=== PATIENT | female | born 1960 | race Caucasian/White ===

== ENCOUNTER 2016-09-16 12:10 | Inpatient (IN) ==
[2016-09-16] MEDS ORDERED: 0.9 % Sodium Chloride 1,000 ML IVC ONE ×2 (12:54→16:57)
[2016-09-16] MEDS ORDERED: Ipratropium/Albuterol Neb 3 ML IH ONE (12:55)
[2016-09-16 13:39] LABS: Basophils % 0.2 %; Eosinophils # 0.1 K/mcL (0.0-0.6); Eosinophils % 0.7 %; Hematocrit 38.4 % (35.3-44.9); Hemoglobin 12.8 g/dL (11.5-15.4); Immature Granulocytes % 0.6 % (0-4); Lymphocytes # 1.1 K/mcL (0.6-4.6); Lymphocytes % 8.5 %; Mean Corpuscular HGB Conc 33.3 g/dL (31.6-35.5); Mean Corpuscular Volume 89.9 fL (83.0-100.0); Mean Platelet Volume 10.4 fL (9.4-12.4); Monocytes # 0.9 K/mcL (0.0-1.3); Monocytes % 6.9 %; Neutrophils # 10.3 K/mcL (1.6-8.9); Platelet Count 277 K/mcL (140-400); Red Blood Count 4.27 M/mcL (3.82-4.97); Red Cell Distribution Width 12.6 % (11.5-14.5); Segmented Neutrophils % 83.1 %
[2016-09-16 13:52] LABS: Calcium 9.5 mg/dL (8.6-10.8); Potassium 3.5 mEq/L (3.5-4.5)
[2016-09-16] MEDS ORDERED: *HR* Morphine 2 MG/ML SYRINGE IVP ONE (14:07)
--- NOTE | 2016-09-16 16:55 | Emergency Department Note ---
Disposition Clinical Impression: Hip hematoma, right, Dehydration Disposition: Admitted As Inpatient Condition: Fair Referrals: NO,PCP [Primary Care Provider] - Forms: ED Satisfaction Letter Time of Disposition: 16:57 Extremity Problem HPI - General Chief complaint: ED Extremity Problem,Nontraumatic Stated complaint: left leg pain Time Seen by Provider: 09/16/16 12:48 Source: EMS Limitations: no limitations Nursing Notes Reviewed: Yes Vital Signs Reviewed: Yes - History of Present Illness HPI Narrative: 55-year-old female presents emergency room for right hip pain and left leg pain. Patient states she fell a few days ago injuring her right hip. She does not take any blood thinners. She states she does have a history of pulmonary embolus. She states that was years ago. She was concerned about her left lower extremity as it was causing her to have some pain as well and she was concerned about a DVT. She denies any abdominal pain. She does admit however to nausea and vomiting as well as diaphoresis and fevers and chills. Symptom onset was yesterday. Worse today. Pt Subjective Complaint: extremity pain, extremity swelling, joint paint Onset (ago): day(s) (2 d) Injury Location: right Pain Scale: 8 Quality: aching Radiation: none Improves with: nothing Worsens with: range of motion, weight bearing, palpation Associated symptoms: Reports: fever, myalgias, arthralgias, swelling, redness. Denies: abdominal pain - Related Data Home Medications Medication Instructions Recorded Confirmed Duloxetine [Cymbalta] 30 mg PO DAILY 02/21/16 03/01/16 FLUoxetine HCl [PROzac] 20 mg PO DAILY 02/21/16 03/01/16 Previous Rx's Medication Instructions Recorded Omeprazole [PriLOSEC] 20 mg PO BIDAC #30 cap 02/21/16 Fluticasone Propionate Nasal 1 spray NS 1-2XD #1 bottle 03/01/16 [Flonase] Levofloxacin [Levaquin] 500 mg PO DAILY #7 tablet 03/01/16 Allergies Allergy/AdvReac Type Severity Reaction Status Date / Time codeine Allergy Hives Verified 03/01/16 15:43 NSAIDS (Non-Steroidal AdvReac Gastrointestinal Verified 03/01/16 15:43 Anti-Inflamma Upset All systems ED: reviewed and negative except as stated. Constitutional: Reports: as per HPI, fever, chills Eyes: Reports: as per HPI Cardiovascular: Reports: as per HPI Respiratory: Reports: as per HPI Gastrointestinal: Reports: nausea, vomiting. Denies: diarrhea Genitourinary: Reports: as per HPI Musculoskeletal: Reports: arthralgia, myalgia Integumentary: Reports: as per HPI Neurological: Reports: as per HPI Psychiatric: Reports: as per HPI Endocrine: Reports: as per HPI Hematological/Lymphatic: Reports: as per HPI Past Medical History - Past Medical History Medical history: Reports: non-contributory, asthma, COPD, pulmonary embolus Psychiatric history: Reports: anxiety, bipolar, depression, panic disorder, PTSD , previous psychiatric hospitalization DATA MANAGEMENT SPECIALIST history: Reports: no DATA MANAGEMENT SPECIALIST history - Social History Smoking Status: Current every day smoker Smokeless Tobacco Status: No Alcohol use: Reports: none Drug use: Reports: none Physical Exam - General Limitations: no limitations General appearance: alert - Head Head exam: atraumatic, normocephalic - Eye Eye exam: Present: normal appearance - Neck Neck exam: Present: normal inspection - Chest Chest inspection: Present: normal inspection - Respiratory Respiratory exam: Present: normal lung sounds bilaterally - Cardiovascular Cardiovascular exam: Present: regular rate, normal rhythm - Abdominal Exam Abdominal exam: Present: soft, Non-Tender, normal bowel sounds - Extremities Exam Extremities exam: Present: other (Patient has some soft tissue swelling located to the right lateral hip concerning for hematoma. Very warm to touch with some erythema. Concerns for cellulitis.) - Expanded Lower Extremity Exam Lower leg exam: Present: other (Left lower extremity appears unremarkable.) Neurovascular/Tendon exam: Present: normal capillary refill - Neurological Exam Neurological exam: Present: alert, oriented X3 - Psychiatric Psychiatric exam: Present: normal affect, normal mood - Skin Skin exam: Present: warm, intact, diaphoresis Course Course Narrative: Plain films of bilateral hips were negative. Ultrasound of the left lower extremity was negative for DVT. CT scan of the right hip without contrast was done to evaluate for infection versus hematoma. The radiologist felt like it was more hematoma related. However, patient as having redness to this region as well as temperature changes concerning for possible infection. I have ordered some IV Unasyn. Patient will need to be admitted for observation. She was very diaphoretic upon exam. Vital Signs Temperature 98.8 F 09/16/16 12:12 Pulse Rate 92 09/16/16 12:12 Respiratory Rate 20 09/16/16 12:12 Blood Pressure 105/67 09/16/16 12:12 O2 Sat by Pulse Oximetry 94 09/16/16 12:12 Temperature 98.8 F 09/16/16 12:12 Pulse Rate 77 09/16/16 15:12 Respiratory Rate 18 09/16/16 15:12 Blood Pressure 110/64 09/16/16 15:12 O2 Sat by Pulse Oximetry 95 09/16/16 15:12 Oxygen Delivery Oxygen Delivery Room Air Extremity Problem, Nontraumati - MDM Narrative Medical decision making narrative: Patient is dehydrated with an elevation of her BUN/creatinine from her nausea and vomiting. Her lactate was normal. Concerns obviously for a right hip hematoma infection. Unasyn has been ordered as well as some IV fluids. - Medical Records Medical records reviewed: Yes I reviewed the patient's medical records. - Lab Data Lab results reviewed: Yes I reviewed the patient's lab results. Result diagrams: 09/16/16 13:31 09/16/16 13:31 Lab Results 09/16/16 09/16/16 09/16/16 Range/Units 13:31 13:31 13:31 WBC 12.4 H (4.3-11.1) K/mcL RBC 4.27 (3.82-4.97) M/mcL Hgb 12.8 (11.5-15.4) g/dL Hct 38.4 (35.3-44.9) % MCV 89.9 (83.0-100.0) fL MCH 30.0 (28.0-33.3) pg MCHC 33.3 (31.6-35.5) g/dL RDW 12.6 (11.5-14.5) % Plt Count 277 (140-400) K/mcL MPV 10.4 (9.4-12.4) fL Immature Gran % 0.6 (0-4) % Seg Neutrophils % 83.1 % Lymphocytes % 8.5 % Monocytes % 6.9 % Eosinophils % 0.7 % Basophils % 0.2 % Neutrophils # 10.3 H (1.6-8.9) K/mcL Lymphocytes # 1.1 (0.6-4.6) K/mcL Monocytes # 0.9 (0.0-1.3) K/mcL Eosinophils # 0.1 (0.0-0.6) K/mcL Basophils # 0.0 (0.0-0.2) K/mcL Sodium 137 (136-145) mEq/L Potassium 3.5 (3.5-4.5) mEq/L Chloride 99 (98-109) mEq/L Carbon Dioxide 23 (19-29) mEq/L BUN 23 H (7-20) mg/dL Creatinine 2.73 H (0.57-1.11) mg/dL Est GFR ( Amer) 22 L (> 60) Est GFR (Non-Af Amer) 18 L (> 60) BUN/Creatinine Ratio 8 (6-26) Glucose 109 H (70-99) mg/dL Calculated Osmolality 288 (280-300) Lactic Acid 1.3 (0.5-2.2) mmol/L Calcium 9.5 (8.6-10.8) mg/dL - Radiology Data Radiology results reviewed: Yes I reviewed the patient's radiology results.
[2016-09-16] MEDS ORDERED: Ondansetron ODT 4 MG TAB.RAPDIS SL PRN (17:41)
[2016-09-16] MEDS ORDERED: Albuterol 2.5 MG/3 ML NEBULIZER IH PRN (17:41)
[2016-09-16] MEDS ORDERED: Naloxone 0.4 MG/ML INJ IVP PRN (17:41)
[2016-09-16] MEDS ORDERED: Acetaminophen 325 MG TABLET PO PRN (17:41)
--- NOTE | 2016-09-16 17:53 | Internal Med History&Physical ---
<Breanne Kenney M - Last Filed: 09/16/16 20:01> Date of Encounter: 09/16/16 Time of Encounter: 17:50 Assessment and Plan (1) Hip hematoma, right Current visit: Yes Status: Acute Patient unsure if she fell. She reports swelling, tenderness and redness for the last three days, along with nausea, vomiting, chills and sweats. CT of hip showed soft tissue hematoma just superficial to the gluteal musculature laterally measuring 6.4 x 5.5 x 7.7 cm. Given patient's symptoms other symptoms, concern for septic hematoma. Will treat with IV antibiotics tylenol, norco, and morphine PRN for pain Narcan PRN for respiratory depression Qualifiers: Encounter type: initial encounter Qualified Code(s): S70.01XA - Contusion of right hip, initial encounter (2) STEVIE (acute kidney injury) Current visit: Yes Status: Acute Patient with BUN of 23 and Cr of 2.73. Patient denies any known history of kidney disease. No baseline labs available for comparison. She reports nausea , vomiting and poor appetite over the last several days, and STEVIE may be due to dehydration. UA with micro Hydrate overnight retroperitoneal ultrasound avoid NSAIDs, renally dose medications Recheck chemistry in the morning. (3) Sepsis Current visit: Yes Status: Acute Patient reports chills, sweats, nausea, vomiting. Right hip with erythematous, warm swelling, possibly cellulitis. WBC count mildly elevated to 12.4, HR mildly elevated on presentation, meeting criteria for sepsis. Blood cultures drawn and sent Lactate normal at 1.3 fluids given with 2L of bolus in ED, followed by 100mL/hr antibiotics initiated with Unasyn, will add Vancomycin Ultrasound of hip ordered to further assess for abscess/fluid collection. Qualifiers: Sepsis type: sepsis due to unspecified organism Qualified Code(s): A41.9 - Sepsis, unspecified organism (4) COPD (chronic obstructive pulmonary disease) Current visit: Yes Status: Acute Patient reports COPD, and reports increased shortness of breath and productive cough for the last 2-3 months. She has run out of her medications. CXR shows no acute process. Lungs have scattered wheezes on auscultation duoneb treatments QID albuterol nebulizer Q2 PRN budesonide/formotorol BID titrate oxygen to maintain O2 sat > 92% Qualifiers: COPD type: unspecified COPD Qualified Code(s): J44.9 - Chronic obstructive pulmonary disease, unspecified (5) Smoker Current visit: Yes Status: Acute Patient smokes 1PPD. Discussed smoking cessation, she has tried to quit in the past and would like to quit, but not ready at this time. Nicotine patch ordered. (6) Bipolar disorder Current visit: Yes Status: Acute Patient reports bipolar disorder, depression, anxiety. She also reports she has recently moved from [place] and has not established with local PCP or Psychiatrist and is running out of her medications. SWK consult Continue home doses of gabapentin, fluoxetine, and seroquel Qualifiers: Active/Remission status: remission status unspecified Qualified Code(s): F31.9 - Bipolar disorder, unspecified (7) DVT prophylaxis Current visit: Yes Status: Acute Ambulate with assistance anti-embolic stockings Heparin 5000u SQ TID Internal Medicine - H&P: HPI Chief complaint: leg pain Admitted From: Emergency Dept Plans for Post Hospital Care: Home History of present illness: Ms. Lim is a 55 year old female with COPD, history of PE, bipolar disorder, anxiety, who presented to the ER today with complaints of pain in her right hip and left leg. Patient reports her left leg has been aching on and off for 2 weeks. Her right hip is warm, red, and tender and she reports that has been going on for 3 days. She states she may have fallen, but cannot remember if she fell or not. In the last three days, she has also experienced sweats, chills, nausea and vomiting, poor appetite, an episode of lightheadedness yesterday. She also reports shortness of breath and cough over the last few months she attributes to her COPD. She denies chest pain, palpitations, numbness , tingling, headache. She reports she moved from [place] recently and has not established with a PCP and is running out of all her medications as well. Evaluation in the ED revealed mildly elevated WBC count of 12.4. Renal failure with BUN 23 and Creatinine of 2.73. Patient denies any history of kidney disease, and we have no baseline labs for comparison. CXR showed no evidence of acute cardiopulmonary disease. Xray of bilateral hips showed normal bilateral hip alignment with no acute fracture or significant arthropathy. CT of right hip showed a soft tissue hematoma just superficial to the gluteal musclature laterally measuring 6.4 x 5.5 x 7.7 cm, higher in density, with no associated gas or fluid to allow for drainage, no findings suspicious for abscess. On exam, patient is alert and oriented, in no acute distress. Lungs have scattered wheezes bilaterally. Right hip has erythematous swelling laterally that is tender to palpation. Past Med Surg Social Fam HX - Past Medical History Medical history: non-contributory, asthma, COPD, pulmonary embolus Psychiatric history: anxiety, bipolar, depression, panic disorder, PTSD, previous psychiatric hospitalization - Past Surgical History Surgical History: cholecystectomy, hysterectomy, orthopedic, other - Social History Smoking Status: Current every day smoker (36 pack year history) Smokeless Tobacco Status: No Alcohol use: none Drug use: none - Family History Mother Living Status: Age at : 46 Cause of : suicide Hx Family Psychosocial Disorders: Yes Father Living Status: Age at : 46 Hx Family Psychosocial Disorders: Yes Internal Medicine - H&P: Meds FLUoxetine HCl [PROzac] 20 mg PO DAILY 02/21/16 [History] Gabapentin [Neurontin] 800 mg PO BID 09/16/16 [History] Quetiapine Fumarate [Seroquel] 600 mg PO HS 09/16/16 [History] Allergies codeine Allergy (Verified 03/01/16 15:43) Hives NSAIDS (Non-Steroidal Anti-Inflamma Adverse Reaction (Verified 03/01/16 15:43) Gastrointestinal Upset All Systems PM: A 10-system review of systems was performed and is negative for pertinent findings except as documented above in the HPI. - Constitutional Constitutional: anorexia, chills, falls, night sweats, no fever(s) - EENT Eyes: no change in vision, no discharge, no pain, no photophobia Ears: no ear discharge, no ear pain, no tinnitus Nose, mouth and throat: no dysphagia, no nasal discharge, no neck pain, no sore throat - Cardiovascular Cardiovascular ROS IM: lightheadedness, no chest pain, no diaphoresis, no dyspnea, no palpitations, no syncope - Respiratory Respiratory: cough, dyspnea, wheezing, excessive phlegm production - Gastrointestinal Gastrointestinal: nausea, vomiting, no abdominal pain, no diarrhea, no hematemesis, no hematochezia, no melena - Genitourinary Genitourinary: no change in urinary stream, no dysuria, no flank pain, no hematuria - Musculoskeletal Musculoskeletal ROS IM: joint swelling (right hip), no numbness, no tingling - Integumentary Integumentary IM: no rash, no unusual bruising - Neurological Neurological ROS: memory loss (patient reports she has trouble with short term memory), no confusion, no convulsions, no focal weakness, no numbness, no tingling, no tremor(s) - Hematologic/Lymphatic Hematologic/Lymphatic: no easy bruising - Constitutional Vitals: Temp Pulse Resp BP Pulse Ox 98.8 F 77 18 110/64 95 09/16/16 12:12 09/16/16 15:12 09/16/16 15:12 09/16/16 15:12 09/16/16 15:12 General appearance: Present: A&O X 3, pleasant, no acute distress - Head Head exam: Present: atraumatic, normocephalic - Eye Eye exam: Present: PERRL, conjuntiva pink, sclera anicteric Pupils: Present: PERRL - Neck Neck exam general surgery: Present: supple, trachea midline. Absent: lymphadenopathy - Respiratory Respiratory exam: Present: wheezes (bilaterally). Absent: accessory muscle use , rales, rhonchi - Cardiovascular Cardiovascular exam: Present: RRR, +S1, +S2. Absent: diastolic murmur, gallop, rubs, systolic murmur - GI/Abdominal GI/Abdominal exam: Present: normal bowel sounds, soft, no peritoneal signs. Absent: distended, tenderness - Extremities Exam Extremities exam: Present: joint swelling (right hip erythmatous swelling laterally with tenderness), warm, radial pulses palpable and symetrical. Absent : calf tenderness, cyanotic, pedal edema - Neurological Exam Neurological exam: Present: CN II-XII intact, oriented X3, no focal deficits. Absent: facial droop, speech deficit - Skin Skin exam: Present: dry, intact Internal Med - H&P Results - Labs CBC & Chem 7: 09/16/16 13:31 09/16/16 13:31 Labs: All Lab Results (24 Hours) 09/16/16 09/16/16 09/16/16 Range/Units 13:31 13:31 13:31 WBC 12.4 H (4.3-11.1) K/mcL RBC 4.27 (3.82-4.97) M/mcL Hgb 12.8 (11.5-15.4) g/dL Hct 38.4 (35.3-44.9) % MCV 89.9 (83.0-100.0) fL MCH 30.0 (28.0-33.3) pg MCHC 33.3 (31.6-35.5) g/dL RDW 12.6 (11.5-14.5) % Plt Count 277 (140-400) K/mcL MPV 10.4 (9.4-12.4) fL Immature Gran % 0.6 (0-4) % Seg Neutrophils % 83.1 % Lymphocytes % 8.5 % Monocytes % 6.9 % Eosinophils % 0.7 % Basophils % 0.2 % Neutrophils # 10.3 H (1.6-8.9) K/mcL Lymphocytes # 1.1 (0.6-4.6) K/mcL Monocytes # 0.9 (0.0-1.3) K/mcL Eosinophils # 0.1 (0.0-0.6) K/mcL Basophils # 0.0 (0.0-0.2) K/mcL Sodium 137 (136-145) mEq/L Potassium 3.5 (3.5-4.5) mEq/L Chloride 99 (98-109) mEq/L Carbon Dioxide 23 (19-29) mEq/L BUN 23 H (7-20) mg/dL Creatinine 2.73 H (0.57-1.11) mg/dL Est GFR ( Amer) 22 L (> 60) Est GFR (Non-Af Amer) 18 L (> 60) BUN/Creatinine Ratio 8 (6-26) Glucose 109 H (70-99) mg/dL Calculated Osmolality 288 (280-300) Lactic Acid 1.3 (0.5-2.2) mmol/L Calcium 9.5 (8.6-10.8) mg/dL - Diagnostic Studies Chest x-ray Additional comments: Chest X-Ray 09/16/16 12:54 IMPRESSION: No radiographic evidence for acute cardiopulmonary disease process. D/ / Cm Crain / Cm Crain Interpreting Provider: Cm Crain Other Images Additional comments: Hip/Pelvis X-Ray 09/16/16 12:54 IMPRESSION: Normal bilateral hip alignment with no acute fracture or significant arthropathy. D/ / 09/16/2016 13:33:35 Prasad Pierce MD / Eleanor Delgado Interpreting Provider: Prasad Pierce MD Hip CT 09/16/16 15:16 IMPRESSION: There is a soft tissue hematoma seen on the right just superficial to the gluteal musculature laterally measuring 6.4 x 5.5 x 7.7 cm best seen on axial image 62. This appears higher in density, with no associated gas or fluid to allow for drainage. No findings suspicious for abscess at this time. No other acute process is identified. D/ / Kevin Aden MD / Kevin Aden MD Interpreting Provider: Kevin Aden MD <Erika Sinclair R - Last Filed: 09/17/16 05:27> Date of Encounter: 09/16/16 Internal Medicine - H&P: HPI History of present illness: Ms. Lim is a 55 year old female All Systems PM: A 10-system review of systems was performed and is negative for pertinent findings except as documented above in the HPI. - Constitutional Vitals: Temp Pulse Resp BP Pulse Ox 98.7 F 91 16 106/69 96 09/17/16 03:15 09/17/16 03:15 09/17/16 03:15 09/17/16 03:15 09/17/16 03:15 Internal Med - H&P Results - Labs CBC & Chem 7: 09/17/16 04:01 09/17/16 04:01 Labs: Short CBC 09/17/16 Range/Units 04:01 WBC 7.8 (4.3-11.1) K/mcL Hgb 10.3 L D (11.5-15.4) g/dL Hct 30.1 L (35.3-44.9) % Plt Count 206 (140-400) K/mcL Neutrophils # 5.7 (1.6-8.9) K/mcL BMP 09/17/16 04:01 Sodium 136 Potassium 3.1 L Chloride 102 Carbon Dioxide 21 BUN 27 H Creatinine 2.26 H Glucose 130 H Calcium 8.3 L Urine 09/16/16 Range/Units 20:00 Urine Color Yellow (Yellow) Urine Clarity Cloudy A (Clear) Urine pH 6.0 (5.0-8.0) pH Units Ur Specific Crapo 1.016 (1.010-1.025) Urine Protein 100 H (Neg-Trace) mg/dL Urine Glucose (UA) Normal (Normal) mg/dL - Attending Attestation I performed history and physical examination of the patient and discussed management with TEXTBOOK ASSOCIATE/ANP. I reviewed the TEXTBOOK ASSOCIATE/ANPs note and agree with the documented findings and plan of care. 57 Y/F with COPD, bipolar disorder presents with pain in the right hip. H/o falls and apparently she does not remember the falls sometimes. She presents with worsening pain at the right hip area for 3 days. She does not remember fall or injury to the right hip area, preceeding the pain. She reports chills and sweats prior to this presentation. O/E: Not in acute distress at the time of my evaluation. There is an area of erythema, local warmth and tenderness on the right lateral gluteal area. Skin: no other areas of bruising noted on the body. CT scan of the pelvis showed - soft tissue hematoma seen on the right just superficial to the gluteal musculature laterally measuring 6.4 x 5.5 x 7.7 cm. This appears higher in density, with no associated gas or fluid to allow for drainage. No findings suspicious for abscess at this time. Labs showed WBC of 12.4; creatinine 2.73. A/P: Hematoma/infected hematoma of the right gluteal area: Will request for US scan, for any areas for aspiration and culture. Emperically treat with unasyn and zosyn. STEVIE: US of the kidneys. IV fluids; monitor renal function. Recurrent falls: PT evaluation
[2016-09-16] MEDS ORDERED: Ampicillin/Sulbactam 3,000 MG in 0.9 % Sodium Chloride Mini Bag 100 ML IVPB ONE (18:00)
[2016-09-16] MEDS: 0.9 % Sodium Chloride 1,000 ML IVC SCH (18:56)
[2016-09-16] MEDS: Nicotine 21 MG PATCH.TD24 TD SCH (19:01)
[2016-09-16] MEDS: *HR* Morphine 2 MG/ML SYRINGE IVP PRN (20:07)
[2016-09-16 20:14] LABS: Bilirubin,Urine Negative (Negative); Blood,Urine Trace (Negative); Clarity,Urine Cloudy (Clear); Color,Urine Yellow (Yellow); Glucose,Urine (UA) Normal (Normal); Ketones,Urine Negative (Negative); Leukocyte Esterase,Urine Small (Negative); Nitrite,Urine Negative (Negative); Protein,Urine 100 mg/dL (Neg-Trace); Specific Gravity,Urine 1.016 (1.010-1.025); Urobilinogen,Urine Normal (Normal)
[2016-09-16 20:16] LABS: Bacteria,Urine Few per hpf (None-Few); Hyaline Casts,Urine None Seen per lpf (None-Few); Squamous Epithelial Cell,Urine Many per lpf (None-Few); WBC,Urine 30-50 per hpf (0-3)
[2016-09-16 20:19] LABS: Amphetamine Screen,Urine Negative ng/mL (Cutoff=1000); Barbiturate Screen,Urine Negative ng/mL (Cutoff=200); Benzodiazepines Screen,Urine Negative ng/mL (Cutoff=200); Cannabinoid Screen,Urine Negative ng/mL (Cutoff = 50); Cocaine Screen,Urine Negative ng/mL (Cutoff= 300); Opiate Screen,Urine Positive ng/mL (Cutoff=300); Phencyclidine Screen,Urine Negative ng/mL (Cutoff=25)
[2016-09-16 21:39] LABS: Albumin 3.2 g/dL (3.5-5.0); Albumin/Globulin Ratio 0.6 (1.1-2.2); Bilirubin,Direct 0.6 mg/dL (0.0-0.5); Bilirubin,Indirect 0.3 mg/dL (0.0-1.2); Bilirubin,Total 0.9 mg/dL (0.2-1.2); Total Protein 8.2 g/dL (6.0-8.3)
[2016-09-16] MEDS: Vancomycin 1,000 MG in D5% in Water 250 ML IVPB SCH (21:53)
[2016-09-16] MEDS ORDERED: *HR* Heparin 5,000 UNIT/ML VIAL SQ SCH (22:00)
[2016-09-16] MEDS: Ipratropium/Albuterol Neb 3 ML IH SCH (23:08)
[2016-09-16] MEDS: Budesonide/Formoterol 160/4.5 MDI IH SCH (23:08)
[2016-09-17] MEDS: *HR* Morphine 2 MG/ML SYRINGE IVP PRN ×6 (00:13→21:56)
[2016-09-17] MEDS: *HR* HYDROcodone/Acet 5/325 mg TABLET PO PRN ×5 (02:20→23:16)
[2016-09-17] MEDS: Fluticasone Propionate Nasal 50 MCG/SPRAY BOTTLE NS SCH ×2 (02:21→12:36)
[2016-09-17] MEDS: Ipratropium/Albuterol Neb 3 ML IH SCH ×5 (03:47→23:22)
[2016-09-17 04:51] LABS: Basophils % 0.3 %; Eosinophils # 0.2 K/mcL (0.0-0.6); Eosinophils % 2.3 %; Hematocrit 30.1 % (35.3-44.9); Immature Granulocytes % 0.4 % (0-4); Lymphocytes # 1.2 K/mcL (0.6-4.6); Mean Corpuscular HGB Conc 34.2 g/dL (31.6-35.5); Mean Corpuscular Hemoglobin 30.3 pg (28.0-33.3); Mean Corpuscular Volume 88.5 fL (83.0-100.0); Mean Platelet Volume 11.2 fL (9.4-12.4); Monocytes # 0.7 K/mcL (0.0-1.3); Monocytes % 8.9 %; Neutrophils # 5.7 K/mcL (1.6-8.9); Platelet Count 206 K/mcL (140-400); Red Cell Distribution Width 12.5 % (11.5-14.5); Segmented Neutrophils % 73.1 %
[2016-09-17 05:04] LABS: Calcium 8.3 mg/dL (8.6-10.8); Hemoglobin 10.3 g/dL (11.5-15.4); Potassium 3.1 mEq/L (3.5-4.5)
[2016-09-17] MEDS: Ampicillin/Sulbactam 1,500 MG in 0.9 % Sodium Chloride Mini Bag 100 ML IVPB SCH ×2 (06:03→20:25)
[2016-09-17] MEDS: Nicotine 21 MG PATCH.TD24 TD SCH (09:41)
[2016-09-17] MEDS: FLUoxetine 20 MG CAPSULE PO SCH (09:41)
[2016-09-17] MEDS: Gabapentin 400 MG CAPSULE PO SCH (09:42)
[2016-09-17] MEDS: Budesonide/Formoterol 160/4.5 MDI IH SCH ×2 (11:25→23:22)
--- NOTE | 2016-09-17 13:55 | Internal Med Progress Note ---
Date of Encounter: 09/17/16 Time of Encounter: 09:30 - Assessment and plan (1) Hip hematoma, right Current Visit: Yes Status: Acute Assessment and plan: Unclear causation at this time. Patient with rather large, erythematous, exquisitely tender area to her right lateral hip. Plain films unremarkable. Hip CT revealing a soft tissue hematoma with no indication of an abscess or any fluid that could be drained. Patient denies any recent injuries to the area. She states that she stopped taking her Suboxone 5 days ago because she was taking any type of pain medication she could get hold of secondary to the severe pain. She states she has not used hair once in January 2016. I do not see any injection or track ruiz on examination. Patient's pain is uncontrolled and her pain medication will be increased at this time. She likely has a relatively high tolerance for pain medication. Distal right leg neurovascularly intact. We will continue to treat her pain and observe. We will continue Unasyn and vancomycin. Vascular studies negative for DVT. ITS Impressions Hip/Pelvis X-Ray 09/16/16 12:54 IMPRESSION: Normal bilateral hip alignment with no acute fracture or significant arthropathy. D/ / 09/16/2016 13:33:35 Prasad Pierce MD / Eleanor Delgado Interpreting Provider: Prasad Pierce MD Hip CT 09/16/16 15:16 IMPRESSION: There is a soft tissue hematoma seen on the right just superficial to the gluteal musculature laterally measuring 6.4 x 5.5 x 7.7 cm best seen on axial image 62. This appears higher in density, with no associated gas or fluid to allow for drainage. No findings suspicious for abscess at this time. No other acute process is identified. D/ / Kevin Adne MD / Kevin Aden MD Interpreting Provider: Kevin Aden MD 09/16/16 14:37 - Vascular Preliminary by Joss Yañez Acct Num: [id number] : 1960 Patient Age: 55 Venous ultrasound appears to show both deep and superficial systems to be patent. Negative for DVT. Qualifiers: Encounter type: initial encounter Qualified Code(s): S70.01XA - Contusion of right hip, initial encounter (2) Sepsis Current Visit: Yes Status: Resolved Assessment and plan: Leukocytosis has resolved. Heart rate and blood pressure are stable. No lactic acidosis Qualifiers: Sepsis type: sepsis due to unspecified organism Qualified Code(s): A41.9 - Sepsis, unspecified organism (3) Heroin use disorder, mild, in early remission Current Visit: Yes Status: Chronic Assessment and plan: patient stating she has not used heroine since January of 2016. Has been on Suboxone- [facility] report checks out. States she has not taken her Suboxone for the past 5 days because she has been taking any pain medication she could get a hold of, in her words, to help alleviate her severe pain. (4) Dehydration Current Visit: Yes Status: Acute Assessment and plan: Will attempt to obtain her old records. Profound acute renal failure provided she does not have a history of chronic kidney disease. She does not have chronic kidney disease that she is aware of, attempting to obtain her records (5) COPD (chronic obstructive pulmonary disease) Current Visit: Yes Status: Chronic Assessment and plan: No acute exacerbation. Patient denies shortness of breath above her norm. Qualifiers: COPD type: unspecified COPD Qualified Code(s): J44.9 - Chronic obstructive pulmonary disease, unspecified (6) Smoker Current Visit: Yes Status: Chronic Assessment and plan: Declines counseling at this time, nicotine patch (7) STEVIE (acute kidney injury) Current Visit: Yes Status: Acute Assessment and plan: Considerable acute renal failure. I do not have prior lab values yet to determine chronicity. We will continue IV fluids and we will continue to trend. Attempting to obtain her old records. She states she does not think that she has any chronic kidney disease. If no improvement with IV fluids, will consider nephrology consult after records obtained. (8) DVT prophylaxis Current Visit: Yes Status: Acute Assessment and plan: SCD's ordered (9) Bipolar disorder Current Visit: Yes Status: Chronic Assessment and plan: mood and affect stable. It is unclear at this time whether or not the patient is taking her home medications, we will continue to investigate once her pain is controlled and her records have been received. Qualifiers: Active/Remission status: remission status unspecified Qualified Code(s): F31.9 - Bipolar disorder, unspecified (10) Hypokalemia Current Visit: Yes Status: Acute Assessment and plan: will replete and trend. (11) Transaminitis Current Visit: Yes Status: Acute Assessment and plan: Do not have prior lab values, will obtain hepatitis panel (12) Abnormal urinalysis Current Visit: Yes Status: Acute Assessment and plan: On antibiotics for suspected septic hematoma, culture pending - Subjective Interval history: Patient seen and examined. On examination, patient resting supine in bed. Patient endorsing severe pain to her right hip. She states she is unable to eat secondary to severe pain - Constitutional Vitals: Temp Pulse Resp BP Pulse Ox 98.2 F 81 16 106/72 94 09/17/16 11:39 09/17/16 11:39 09/17/16 11:39 09/17/16 08:08 09/17/16 11:39 General appearance: Present: mild distress (2/2 pain), A&O X 3, pleasant, answers questions appropriately - Head Head exam: Present: atraumatic, normocephalic - Eye Eye exam: Present: PERRL, conjuntiva pink, sclera anicteric Pupils: Present: PERRL - Neck Neck exam general surgery: Present: supple, trachea midline. Absent: lymphadenopathy - Respiratory Respiratory exam: Present: decreased breath sounds. Absent: accessory muscle use, rales, respiratory distress, rhonchi, wheezes - Cardiovascular Cardiovascular exam: Present: RRR, +S1, +S2. Absent: diastolic murmur, gallop, rubs, systolic murmur - GI/Abdominal GI/Abdominal exam: Present: normal bowel sounds, soft, no peritoneal signs. Absent: distended, tenderness - Extremities Exam Extremities exam: Present: warm, radial pulses palpable and symetrical. Absent : calf tenderness, cyanotic, pedal edema - Expanded Lower Extremities Exam Hip exam: Present: erythema, swelling, tenderness. Absent: full ROM, normal inspection Neuro vascular tendon exam: Present: no vascular compromise. Absent: abnormal cap refill - Neurological Exam Neurological exam: Present: alert, CN II-XII intact, oriented X3, no focal deficits, strengths equal and symetr throughout. Absent: pronater drift, facial droop, speech deficit - Skin Skin exam: Present: dry, intact, pallor, warm Internal Medicine: Result - Labs CBC & Chem 7: 09/17/16 04:01 09/17/16 04:01 - VTE Documentation of Mechanical Device: Intermittent pneumatic compression device Consult Discharge Plan - Plan Referrals: NO,PCP [Primary Care Provider] -
[2016-09-17] MEDS ORDERED: *HR* Promethazine 25 MG/ML VIAL IVP PRN (14:09)
[2016-09-17] MEDS ORDERED: Ondansetron ODT 4 MG TAB.RAPDIS SL PRN (14:10)
[2016-09-17 19:37] LABS: Albumin/Globulin Ratio 0.6 (1.1-2.2); Bilirubin,Direct 0.2 mg/dL (0.0-0.5); Bilirubin,Indirect 0.2 mg/dL (0.0-1.2); Bilirubin,Total 0.4 mg/dL (0.2-1.2); Globulin 3.8 g/dL (2.4-3.5)
[2016-09-17 19:47] LABS: Albumin 2.4 g/dL (3.5-5.0); Total Protein 6.2 g/dL (6.0-8.3)
[2016-09-17] MEDS: Vancomycin 1,000 MG in D5% in Water 250 ML IVPB SCH (22:08)
[2016-09-17] MEDS: 0.9 % Sodium Chloride 1,000 ML IVC SCH ×2 (22:08→22:09)
[2016-09-18] MEDS: *HR* Morphine 2 MG/ML SYRINGE IVP PRN ×6 (02:00→22:27)
[2016-09-18] MEDS: Ipratropium/Albuterol Neb 3 ML IH SCH ×4 (04:23→22:15)
[2016-09-18 05:52] LABS: Basophils % 0.2 %; Eosinophils # 0.3 K/mcL (0.0-0.6); Eosinophils % 2.9 %; Hematocrit 29.3 % (35.3-44.9); Hemoglobin 9.7 g/dL (11.5-15.4); Immature Granulocytes % 0.5 % (0-4); Lymphocytes # 1.4 K/mcL (0.6-4.6); Lymphocytes % 16.6 %; Mean Corpuscular HGB Conc 33.1 g/dL (31.6-35.5); Mean Corpuscular Hemoglobin 29.9 pg (28.0-33.3); Mean Corpuscular Volume 90.4 fL (83.0-100.0); Mean Platelet Volume 11.2 fL (9.4-12.4); Monocytes # 0.9 K/mcL (0.0-1.3); Monocytes % 10.7 %; Neutrophils # 5.9 K/mcL (1.6-8.9); Platelet Count 221 K/mcL (140-400); Red Blood Count 3.24 M/mcL (3.82-4.97); Red Cell Distribution Width 13.1 % (11.5-14.5); Segmented Neutrophils % 69.1 %
[2016-09-18 06:14] LABS: Calcium 8.6 mg/dL (8.6-10.8); Magnesium 1.6 mg/dL (1.6-2.6); Potassium 3.4 mEq/L (3.5-4.5)
[2016-09-18] MEDS: *HR* HYDROcodone/Acet 5/325 mg TABLET PO PRN ×4 (07:23→20:54)
[2016-09-18] MEDS: Nicotine 21 MG PATCH.TD24 TD SCH (08:04)
[2016-09-18] MEDS: Gabapentin 400 MG CAPSULE PO SCH (08:04)
[2016-09-18] MEDS: FLUoxetine 20 MG CAPSULE PO SCH (08:04)
--- NOTE | 2016-09-18 08:25 | Nephrology Consult Note ---
Date of Encounter: 09/18/16 Time of Encounter: 11:06 Assessment and Plan (1) STEVIE (acute kidney injury) Current Visit: Yes Status: Acute Elevated SCr with suspected STEVIE but unknown SCr baseline level. Of note he is improving with IVF hydration, so this tends to support more of an STEVIE process from pre-renal/dehydration. Continue IVF In the meantime, we need to work up the STEVIE. He has proteinuria of 100 on the UA. Will need to semiquantify with a spot U P/C ratio plus check serologies including Cryo and RF given his hx of HCV. Check renal U/S Avoid nephrotoxins. Dose Rx safely Thank you for consulting the [facility] group. Will follow with you. (2) Dehydration Current Visit: Yes Status: Acute Agree with IVF (3) Hip hematoma, right Current Visit: Yes Status: Acute As per primary Qualifiers: Encounter type: initial encounter Qualified Code(s): S70.01XA - Contusion of right hip, initial encounter (4) Hypokalemia Current Visit: Yes Status: Acute Could be associated with the IVF repletion. Replace. Check Mag (5) Proteinuria Current Visit: Yes Status: Acute See above: start GN work up. No prior renal biopsy. Start with lab testing first. Qualifiers: Proteinuria type: isolated Qualified Code(s): R80.0 - Isolated proteinuria History of Present Illness - Reason for Consult Consult date: 09/18/16 Acute Kidney Injury (Elevated Cr without a known baseline Cr (so it's unclear if this is STEVIE or STEVIE on CKD or just at his baseline level of CKD)) Requesting physician: Linden Duggan - Chief Complaint Elevated Cr - History of Present Illness Apurva Lim is a very pleasant lady with a pmh of prior bowel issues s/p partial colectomy, longstanding HCV without prior treatment and et al who presented with elevated SCr. Nephrology was consulted to the elevated SCr. She was initially placed on IVF and her renal function has been slowly improving. She says that she does not have a PCP and no recent lab testing, so there is no available baseline renal function for comparison. She denied taking any NSAIDs. She has not been recently hospitalized or any recent surgeries. She denied any recent contrast exposures and no recent C procedures. She denied N/V/D even. She has known about the HCV for many years she said. She did not affirm any dysuria, visible hematuria or prior renal stones. No FHx reported of any ESRD. Past Med Surg Social Fam HX - Past Medical History Medical history: non-contributory, asthma, COPD, pulmonary embolus Psychiatric history: anxiety, bipolar, depression, panic disorder, PTSD, previous psychiatric hospitalization - Past Surgical History Surgical History: cholecystectomy, hysterectomy, orthopedic, other - Social History Smoking Status: Current every day smoker Packs per day: 1 Smokeless Tobacco Status: No Alcohol use: none Drug use: none - Family History Mother Living Status: Age at : 46 Cause of : suicide Hx Family Psychosocial Disorders: Yes Father Living Status: Age at : 46 Hx Family Psychosocial Disorders: Yes Medications and Allergies FLUoxetine HCl [PROzac] 20 mg PO DAILY 02/21/16 [History] Gabapentin [Neurontin] 800 mg PO BID 09/16/16 [History] Quetiapine Fumarate [Seroquel] 600 mg PO HS 09/16/16 [History] Allergies codeine Allergy (Verified 03/01/16 15:43) Hives NSAIDS (Non-Steroidal Anti-Inflamma Adverse Reaction (Verified 03/01/16 15:43) Gastrointestinal Upset Review of Systems All Systems: reviewed and no additional remarkable complaints except as stated Exam - Vital Signs Vital signs: Initial Vital Signs Temp Pulse Resp BP Pulse Ox 98.8 F 92 20 105/67 94 09/16/16 12:12 09/16/16 12:12 09/16/16 12:12 09/16/16 12:12 09/16/16 12:12 Vital Signs - Last 8 Hours Temp Pulse Resp BP Pulse Ox 09/18/16 07:59 98.4 F 76 20 102/69 93 Intake and Output 09/17/16 09/18/16 09/18/16 23:59 07:59 15:59 Intake Total 1100 / 1100 50 / 50 Output Total 0 / 0 Balance 1100 / 1100 50 / 50 Intake: IV Fluids 1100 / 1100 0.9 % Sodium Chloride 1, 1000 / 1000 000 ML @ 100 mls/hr IVC . Q10H PAUL Rx#:[id number] Potassium Chloride 10 mEq 100 / 100 /100mL 10 meq In 100 ml @ 100 mls/hr IVPB Q1H PAUL Rx#:[id number] Oral 50 / 50 Output: Urine 0 / 0 - General Appearance General appearance: well-developed, well-nourished, appears started age EENT: ATNC, PERRL, mucous membranes moist Neck: supple Cardiology: no edema, regular rate, regular rhythm, normal S1, normal S2 Gastrointestinal: normoactive bowel sounds, no tenderness, no guarding Integumentary: no rash, warm and dry Neurologic: no focal deficit, no asterixis, alert and oriented x3 Musculoskeletal: no deformities, no erythema, no clubbing Psychiatric: mood/affect appropriate, cooperative Results - Lab Results 09/18/16 04:54 09/18/16 04:54 Most recent lab results Calcium 8.6 mg/dL (8.6-10.8) 09/18/16 04:54 Magnesium 1.6 mg/dL (1.6-2.6) 09/18/16 04:54 I reviewed all of the above, including labs, meds, vitals, imaging, and the available notes. Consult Discharge Plan - Plan Additional Instructions: You have an appointment with Cee Mtz September 24, 2016 at 1:45pm. Please bring social security card, medicaid, family income, and proof of address. Referrals: Trinidad Luna CNP [Advanced Practice Nurse] - 10/02/16 1:00 pm (Please bring Photo ID, insurance card, & any medications you are currently taking. If you are unable to keep this appointment please cancel with in 24 hours of this appointment time. ) Rebecca Mtz CNP [Advanced Practice Nurse] - 12/09/16 8:30 am
[2016-09-18] MEDS: Fluticasone Propionate Nasal 50 MCG/SPRAY BOTTLE NS SCH (09:37)
[2016-09-18 09:43] LABS: Hepatitis A Antibody IgM Nonreactive (Nonreactive); Hepatitis B Core IgM Nonreactive (Nonreactive); Hepatitis B Surface Antigen Nonreactive (Nonreactive)
[2016-09-18 09:45] LABS: Hepatitis C Virus Antibody Reactive (Nonreactive)
[2016-09-18 09:46] LABS: Uric Acid 3.6 mg/dL (2.6-6.0)
[2016-09-18] MEDS: 0.9 % Sodium Chloride 1,000 ML IVC SCH ×3 (10:11→21:08)
[2016-09-18 11:06] LABS: Protein/Creatinine Ratio,Urine 0.24 mg/mg (0-0.20)
[2016-09-18] MEDS: Budesonide/Formoterol 160/4.5 MDI IH SCH ×2 (11:28→22:15)
--- NOTE | 2016-09-18 11:58 | Internal Med Progress Note ---
Date of Encounter: 09/18/16 Time of Encounter: 11:58 - Assessment and plan (1) Hip hematoma, right Current Visit: Yes Status: Acute Assessment and plan: Etiology unknown Patient denies trauma, she suspects spider bite Plain films unremarkable. Hip CT revealing a soft tissue hematoma with no indication of an abscess or any fluid that could be drained. Extremity USS with possible abscess around hematoma Surgery has been consulted for recommendation or possible drainage, no fluctuancy on exam Continue Unasyn and renally dosed Vancomycin Qualifiers: Encounter type: initial encounter Qualified Code(s): S70.01XA - Contusion of right hip, initial encounter (2) COPD (chronic obstructive pulmonary disease) Current Visit: Yes Status: Chronic Assessment and plan: No acute exacerbation. Patient denies shortness of breath above her norm. Qualifiers: COPD type: unspecified COPD Qualified Code(s): J44.9 - Chronic obstructive pulmonary disease, unspecified (3) Smoker Current Visit: Yes Status: Chronic Assessment and plan: Declines counseling at this time, nicotine patch (4) STEVIE (acute kidney injury) Current Visit: Yes Status: Acute Assessment and plan: STEVIE , pre-renal, possibly underlying CKD given proteinuria Patient may also have evidence of urinary retention, significant post-void volme without hydronephrosis Renal on board, appreciate recs Follow proteinura work up Add tamsulosin (5) Sepsis Current Visit: Yes Status: Resolved Assessment and plan: Leukocytosis has resolved. Heart rate and blood pressure are stable. No lactic acidosis Urine and blood culture negative Cellulitis was source, improving Qualifiers: Sepsis type: sepsis due to unspecified organism Qualified Code(s): A41.9 - Sepsis, unspecified organism (6) Bipolar disorder Current Visit: Yes Status: Chronic Assessment and plan: mood and affect stable. Continue seroquel/prozac Qualifiers: Active/Remission status: remission status unspecified Qualified Code(s): F31.9 - Bipolar disorder, unspecified (7) Hypokalemia Current Visit: Yes Status: Acute Assessment and plan: will replete and trend. (8) Proteinuria Current Visit: Yes Status: Acute Assessment and plan: Follow proteinuria work up Qualifiers: Proteinuria type: isolated Qualified Code(s): R80.0 - Isolated proteinuria - Subjective Interval history: Initial encounter 55 F being managed for STEVIE, Right hip region cellulitis and hematoma, Sepsis as a result of this, Hypokalemia and COPD Seen at bedside "frustrated because her hematoma is worsening", otherwise denies new complains Extremity USS shows hematoma with possible surrounding abscess, Surgery has been consulted - Constitutional Vitals: Temp Pulse Resp BP Pulse Ox 98.4 F 76 20 102/69 92 09/18/16 07:59 09/18/16 07:59 09/18/16 11:28 09/18/16 07:59 09/18/16 11:28 General appearance: Present: A&O X 3, pleasant, no acute distress, answers questions appropriately - Head Head exam: Present: atraumatic, normocephalic - Eye Eye exam: Present: PERRL, conjuntiva pink, sclera anicteric Pupils: Present: PERRL - Neck Neck exam general surgery: Present: supple, trachea midline. Absent: lymphadenopathy - Respiratory Respiratory exam: Present: CTAB. Absent: accessory muscle use, rales, rhonchi, wheezes - Cardiovascular Cardiovascular exam: Present: RRR, +S1, +S2. Absent: diastolic murmur, gallop, rubs, systolic murmur - GI/Abdominal GI/Abdominal exam: Present: normal bowel sounds, soft, no peritoneal signs. Absent: distended, tenderness - Extremities Exam Additional comments: Right hip region redness, swelling , hard to firm, non -fluctuant, warm and tender. NO pedal edema, no circulatory compromise on RLE and LLE, no track ruiz on extremities - Neurological Exam Neurological exam: Present: alert, CN II-XII intact, normal gait, oriented X3, no focal deficits. Absent: pronater drift, facial droop, speech deficit - Skin Skin exam: Present: dry Internal Medicine: Result - Labs CBC & Chem 7: 09/18/16 04:54 09/18/16 04:54 Labs: Short CBC 09/18/16 Range/Units 04:54 WBC 8.6 (4.3-11.1) K/mcL Hgb 9.7 L (11.5-15.4) g/dL Hct 29.3 L (35.3-44.9) % Plt Count 221 (140-400) K/mcL Neutrophils # 5.9 (1.6-8.9) K/mcL BMP 09/18/16 04:54 Sodium 137 Potassium 3.4 L Chloride 105 Carbon Dioxide 20 BUN 24 H Creatinine 1.70 H Glucose 121 H Calcium 8.6 Liver Function 09/17/16 Range/Units 18:40 Total Bilirubin 0.4 (0.2-1.2) mg/dL Direct Bilirubin 0.2 (0.0-0.5) mg/dL AST 39 H (5-34) Units/L ALT 48 (0-55) Units/L Alkaline Phosphatase 182 H (38-126) Units/L Albumin 2.4 L D (3.5-5.0) g/dL - Impressions Impressions Extremity Ultrasound 09/17/16 15:00 IMPRESSION: 7.2 cm x 6.2 cm x 4.6 cm lesion in the the subcutaneous tissues of the right hip corresponds with the CT finding. The appearance of the material within the collection is more suggestive of hematoma than abscess. However, there is adjacent hypervascularity and fluid that could be seen with abscess and cellulitis. Of note, no gas is again noted within the collection. D/ / Fabian Guerrero MD / Fabian Guerrero MD Interpreting Provider: Fabian Guerrero MD Retroperitoneum Ultrasound 09/17/16 15:00 IMPRESSION: Unremarkable ultrasound of the kidneys. No evidence of hydronephrosis. There is 152 mL postvoid residual. D/ / Britney Gunter MD / Britney Gunter MD Interpreting Provider: Britney Gunter MD - VTE Documentation of Mechanical Device: Intermittent pneumatic compression device Consult Discharge Plan - Plan Additional Instructions: You have an appointment with Cee Mtz September 24, 2016 at 1:45pm. Please bring social security card, medicaid, family income, and proof of address. Referrals: Trinidad Luna CNP [Advanced Practice Nurse] - 10/02/16 1:00 pm (Please bring Photo ID, insurance card, & any medications you are currently taking. If you are unable to keep this appointment please cancel with in 24 hours of this appointment time. ) Rebecca Mtz, JANE [Advanced Practice Nurse] - 12/09/16 8:30 am
[2016-09-18] MEDS ORDERED: Ondansetron 4 MG/2 ML VIAL IVP PRN (12:00)
--- NOTE | 2016-09-18 12:50 | General Surgery Consult Note ---
Date of Encounter: 09/18/16 Time of Encounter: 12:10 History of Present Illness Consult date: 09/18/16 Reason for consult: other (pain, swelling right hip; possible abscess) Requesting physician: Linden Duggan History of present illness: 55-year-old female referred to surgical services for further evaluation and possible treatment of pain, swelling, and redness right hip. Patient denies any recall of trauma to this area and also denies any injections or subcutaneous administration drugs or meds. Patient indicates she became aware of the swelling approximately 4 days ago because of progressive pain and swelling she presented to the emergency department for further evaluation and treatment on 09/16/16. The ER record indicates a history of trauma (a fall several days prior to presentation). The patient denies being on any aspirin, hypothyroid agents or anticoagulants. X-rays of the hip and pelvis including CT were completed on presentation. These films were personally reviewed with the [facility]. Plain films demonstrated no obvious arthropathy or fracture. The CT demonstrated a right sided hematoma located in the subcutaneous tissue with no obvious bony pathology. The underlying musculature was also unremarkable. There was no air or subcutaneous gas within the complex fluid collection to suggest an abscess. Incidental note of several fat containing hernias involving the anterior abdominal wall. An ultrasound of retroperitoneum and right hip - 09/17/2016, was also personally reviewed. The findings were more consistent with a hematoma than an abscess. Past medical history: COPD, continued tobacco use, asthma, remote history of pulmonary embolus; "poor" or impaired renal function Chronic anxiety, bipolar disorder, depression, panic disorder, PTSD with history prior psychiatric hospitalization (per medical record) Surgical history: Cholecystectomy; hysterectomy Allergies: Non steroidal anti-inflammatories; codeine Medications: Cymbalta 30 mg by mouth daily Fluoxetine 20 mg by mouth daily Omeprazole 20 mg by mouth twice a day Fluticasone 1 nasal spray twice daily Social history: G6, P4, Ab2; patient admits to 1+ PPD since age 18 (approx 35 years); she did not respond to questions about alcohol or illicit drug use Physical examination: Woman who appears slightly older than her stated age, resting comfortably in her hospital bed, in no acute distress Afebrile, 98.4; pulse 76, respirations 20, blood pressure 102/69; SPO2 on room air 92-93% Skin: Warm, no obvious jaundice Lungs: Clear to auscultation Cardiac: Regular rate, no appreciable murmurs Abdomen: Soft, nontender; active bowel sounds. No appreciable intra- abdominal masses. Extremities: Erythema and swelling posterior lateral right hip. No obvious injection sites or other evidence of penetrating injury to this area. No obvious clubbing cyanosis or edema involving the distal extremities Laboratories: Most recent white count 8.6; hemoglobin 9.7, hematocrit 29.3; platelet count 221,000. Electrolytes notable for sodium of 137, potassium 3.4, BMI 24, creatinine 1.70, estimated GFR 31 ( improved since admission ) Impression: 55-year-old female, apparently a poor historian, referred to surgical services for further evaluation and treatment of pain, swelling, and erythema of the right hip. Findings are most consistent with a hematoma rather than an abscess. Currrently the patient does not require surgical intervention. Recommendations: Apply heat to the affected with caution against thermal injury As the hematoma liquifies can consider aspiration v allowing the hematoma to resorb without intervention.. Risks of needle aspiration include secondary infection of the subcutaneous fluid collection with resultant abscess. The fluid collection is currently not amenable to needle aspiration. Past Med Surg Social Fam HX - Past Medical History Medical history: non-contributory, asthma, COPD, pulmonary embolus Psychiatric history: anxiety, bipolar, depression, panic disorder, PTSD, previous psychiatric hospitalization - Past Surgical History Surgical History: cholecystectomy, hysterectomy, orthopedic, other - Social History Smoking Status: Current every day smoker Packs per day: 1 Smokeless Tobacco Status: No Alcohol use: none Drug use: none - Family History Mother Living Status: Age at : 46 Cause of : suicide Hx Family Psychosocial Disorders: Yes Father Living Status: Age at : 46 Hx Family Psychosocial Disorders: Yes Medications and Allergies FLUoxetine HCl [PROzac] 20 mg PO DAILY 02/21/16 [History] Gabapentin [Neurontin] 800 mg PO BID 09/16/16 [History] Quetiapine Fumarate [Seroquel] 600 mg PO HS 09/16/16 [History] Allergies codeine Allergy (Verified 03/01/16 15:43) Hives NSAIDS (Non-Steroidal Anti-Inflamma Adverse Reaction (Verified 03/01/16 15:43) Gastrointestinal Upset Review of Systems All systems PM: A 10-system review of systems was performed and is negative for pertinent findings except as documented above in the HPI. General Surgery Exam Initial Vital Signs Temp Pulse Resp BP Pulse Ox 98.8 F 92 20 105/67 94 09/16/16 12:12 09/16/16 12:12 09/16/16 12:12 09/16/16 12:12 09/16/16 12:12 Exam Initial Vital Signs Temp Pulse Resp BP Pulse Ox 98.8 F 92 20 105/67 94 09/16/16 12:12 09/16/16 12:12 09/16/16 12:12 09/16/16 12:12 09/16/16 12:12 Results - Labs 09/18/16 04:54 09/18/16 04:54 Abnormal lab results RBC 3.24 M/mcL (3.82-4.97) L 09/18/16 04:54 Hgb 9.7 g/dL (11.5-15.4) L 09/18/16 04:54 Hct 29.3 % (35.3-44.9) L 09/18/16 04:54 ESR 83 mm/hr (0-15) H 09/18/16 04:54 Potassium 3.4 mEq/L (3.5-4.5) L 09/18/16 04:54 BUN 24 mg/dL (7-20) H 09/18/16 04:54 Creatinine 1.70 mg/dL (0.57-1.11) H 09/18/16 04:54 Est GFR ( Amer) 38 (> 60) L 09/18/16 04:54 Est GFR (Non-Af Amer) 31 (> 60) L 09/18/16 04:54 Glucose 121 mg/dL (70-99) H 09/18/16 04:54 AST 39 Units/L (5-34) H 09/17/16 18:40 Alkaline Phosphatase 182 Units/L (38-126) H 09/17/16 18:40 Creatine Kinase 12 Units/L (29-168) L 09/18/16 09:16 C-Reactive Protein 204 mg/L (Less than 5) H 09/18/16 04:54 Albumin 2.4 g/dL (3.5-5.0) L D 09/17/16 18:40 Globulin 3.8 g/dL (2.4-3.5) H 09/17/16 18:40 Albumin/Globulin Ratio 0.6 (1.1-2.2) L 09/17/16 18:40 Urine Clarity Cloudy (Clear) A 09/16/16 20:00 Urine Protein 100 mg/dL (Neg-Trace) H 09/16/16 20:00 Urine Blood Trace (Negative) H 09/16/16 20:00 Ur Leukocyte Esterase Small (Negative) H 09/16/16 20:00 Urine Microscopic RBC 3-5 per hpf (0-3) H 09/16/16 20:00 Urine Microscopic WBC 30-50 per hpf (0-3) H 09/16/16 20:00 Ur Squamous Epith Cells Many per lpf (None-Few) H 09/16/16 20:00 Ur Culture Indicated? YES (NO) A 09/16/16 20:00 Protein/Creatinin Ratio 0.24 mg/mg (0-0.20) H 09/18/16 10:30 Urine Opiates Screen Positive ng/mL (Leveej=278) H 09/16/16 20:00 Hepatitis C Ab Screen Reactive (Nonreactive) H 09/17/16 18:40 Diabetes panel 09/17/16 09/18/16 Range/Units 18:40 04:54 Sodium 137 (136-145) mEq/L Potassium 3.4 L (3.5-4.5) mEq/L Chloride 105 (98-109) mEq/L Carbon Dioxide 20 (19-29) mEq/L BUN 24 H (7-20) mg/dL Creatinine 1.70 H (0.57-1.11) mg/dL Glucose 121 H (70-99) mg/dL Calcium 8.6 (8.6-10.8) mg/dL AST 39 H (5-34) Units/L ALT 48 (0-55) Units/L Alkaline Phosphatase 182 H (38-126) Units/L Albumin 2.4 L D (3.5-5.0) g/dL Calcium panel 09/17/16 09/18/16 Range/Units 18:40 04:54 Calcium 8.6 (8.6-10.8) mg/dL Albumin 2.4 L D (3.5-5.0) g/dL Pituitary panel 09/18/16 Range/Units 04:54 Sodium 137 (136-145) mEq/L Potassium 3.4 L (3.5-4.5) mEq/L Chloride 105 (98-109) mEq/L Carbon Dioxide 20 (19-29) mEq/L BUN 24 H (7-20) mg/dL Creatinine 1.70 H (0.57-1.11) mg/dL Glucose 121 H (70-99) mg/dL Calcium 8.6 (8.6-10.8) mg/dL Adrenal panel 09/17/16 09/18/16 Range/Units 18:40 04:54 Sodium 137 (136-145) mEq/L Potassium 3.4 L (3.5-4.5) mEq/L Chloride 105 (98-109) mEq/L Carbon Dioxide 20 (19-29) mEq/L BUN 24 H (7-20) mg/dL Creatinine 1.70 H (0.57-1.11) mg/dL Glucose 121 H (70-99) mg/dL Calcium 8.6 (8.6-10.8) mg/dL Total Bilirubin 0.4 (0.2-1.2) mg/dL AST 39 H (5-34) Units/L ALT 48 (0-55) Units/L Alkaline Phosphatase 182 H (38-126) Units/L Albumin 2.4 L D (3.5-5.0) g/dL All other labs normal. Consult Discharge Plan - Plan Additional Instructions: You have an appointment with Cee Mtz September 24, 2016 at 1:45pm. Please bring social security card, medicaid, family income, and proof of address. Referrals: Trinidad Luna CNP [Advanced Practice Nurse] - 10/02/16 1:00 pm (Please bring Photo ID, insurance card, & any medications you are currently taking. If you are unable to keep this appointment please cancel with in 24 hours of this appointment time. ) Rebecca Mtz CNP [Advanced Practice Nurse] - 12/09/16 8:30 am
[2016-09-18] MEDS: Ampicillin/Sulbactam 1,500 MG in 0.9 % Sodium Chloride Mini Bag 100 ML IVPB SCH ×2 (15:04→22:42)
--- NOTE | 2016-09-18 19:19 | Venous Imaging Report ---
LE Venous Duplex Patient Name:Apurva Lim Order Number:[id number] Procedure Date:09/16/2016 Date:1960ge:55 yrs Gender:Female Location:[facility] ED Room #: ER 30 Transaction Processor:Iram Mayorga RDCS, [place] Referring MD:Terell Richards, medical and health services manager:None Reading MD:Alexis Sanchez MD Primary Indications:History of PE, Pain Secondary Indications: Risk Factors Yes/No Hx of DVT No Anticoagulants No Hx of Chemotherapy No Recent Surgery No Impressions: Left lower extremity: normal superficial and deep exam. Recommendations: After imaging the patient returned to their room. Test completed on 09/16/2016 at 1:49:00 pm. Critical findings reported to ER by phone, luis elliott at 2:35:49 pm on 09/16/2016 by Iram Mayorga RDCS, RVT. Findings Prior Study: No prior study available for comparison. Lower Extremity Venous Duplex Side Vein Compress Spontaneous Flow Augment Diameter (cm) Depth (cm) Left Distal Iliac Normal Yes Phasic Yes Left Common Femoral Normal Yes Phasic Yes Left Superficial Femoral Normal Yes Phasic Yes Left Popliteal Normal Yes Phasic Yes Left Posterior Tibial Normal Yes Phasic Yes Left Peroneal Normal Yes Phasic Yes Left Great Saphenous Normal Yes Phasic Yes Left Lesser Saphenous Normal Yes Phasic Yes Right Common Femoral Normal Yes Phasic Yes Updated by Alexis Sanchez MD on 09/18/2016 7:13:33 PM electronically signed on 09/18/2016 7:13:47 PM with status of Final
[2016-09-18] MEDS: Vancomycin 1,250 MG in D5% in Water 250 ML IVPB SCH (23:27)
[2016-09-19] MEDS: *HR* Morphine 2 MG/ML SYRINGE IVP PRN ×7 (00:53→20:32)
[2016-09-19] MEDS: *HR* HYDROcodone/Acet 5/325 mg TABLET PO PRN ×6 (00:53→22:47)
[2016-09-19] MEDS: Ipratropium/Albuterol Neb 3 ML IH SCH ×4 (04:42→22:17)
[2016-09-19 04:53] LABS: Basophils % 0.2 %; Eosinophils # 0.4 K/mcL (0.0-0.6); Eosinophils % 3.2 %; Hematocrit 27.8 % (35.3-44.9); Hemoglobin 9.2 g/dL (11.5-15.4); Immature Granulocytes % 0.6 % (0-4); Lymphocytes # 2.1 K/mcL (0.6-4.6); Lymphocytes % 18.7 %; Mean Corpuscular HGB Conc 33.1 g/dL (31.6-35.5); Mean Corpuscular Hemoglobin 30.2 pg (28.0-33.3); Mean Corpuscular Volume 91.1 fL (83.0-100.0); Monocytes # 1.1 K/mcL (0.0-1.3); Monocytes % 9.9 %; Neutrophils # 7.5 K/mcL (1.6-8.9); Platelet Count 229 K/mcL (140-400); Red Blood Count 3.05 M/mcL (3.82-4.97); Red Cell Distribution Width 13.3 % (11.5-14.5); Segmented Neutrophils % 67.4 %
[2016-09-19 05:06] LABS: Calcium 9.1 mg/dL (8.6-10.8); Potassium 3.7 mEq/L (3.5-4.5)
[2016-09-19] MEDS ORDERED: 0.9 % Sodium Chloride Mini Bag 100 ML ONE (05:51)
[2016-09-19] MEDS: Ampicillin/Sulbactam 1,500 MG in 0.9 % Sodium Chloride Mini Bag 100 ML IVPB SCH ×3 (05:52→21:39)
[2016-09-19] MEDS: Gabapentin 400 MG CAPSULE PO SCH (09:25)
[2016-09-19] MEDS: Nicotine 21 MG PATCH.TD24 TD SCH (09:26)
[2016-09-19] MEDS: FLUoxetine 20 MG CAPSULE PO SCH (09:26)
[2016-09-19] MEDS: Fluticasone Propionate Nasal 50 MCG/SPRAY BOTTLE NS SCH (09:26)
--- NOTE | 2016-09-19 10:06 | Nephrology Progress Note ---
Date of Encounter: 09/19/16 Time of Encounter: 10:03 - Assessment and Plan (1) STEVIE (acute kidney injury) Current Visit: Yes Status: Acute Resolving with IVF, but since she is consuming liquids well, I will decrease her IVF to 50mL/hr. Renal U/S was reassuring. Hx of HCV and there was 100 protein on the UA: pending GN serologies. Doing well from a nephrology perspective, but cont to follow a renal protective strategy: avoid nephrotoxic Rx and dose Rx by GFR Thank you. (2) Dehydration Current Visit: Yes Status: Acute See above (3) Hip hematoma, right Current Visit: Yes Status: Acute General Surgery following Qualifiers: Encounter type: initial encounter Qualified Code(s): S70.01XA - Contusion of right hip, initial encounter (4) Hypokalemia Current Visit: Yes Status: Acute Improved (5) Proteinuria Current Visit: Yes Status: Acute See above Qualifiers: Proteinuria type: isolated Qualified Code(s): R80.0 - Isolated proteinuria Subjective Principal diagnosis: STEVIE Interval history: Pt was s/e earlier today. She did not affirm N/V/D abd pain or uremic symptoms. +diminished appetitie. Has seen general surgery. Objective - Vital Signs Vital signs: Vital Signs Temp Pulse Resp BP Pulse Ox 09/19/16 09:38 92 09/19/16 08:25 98.1 F 72 14 119/74 92 09/19/16 04:57 97.7 F 77 18 106/61 99 09/18/16 23:59 98.9 F 92 18 115/67 92 09/18/16 22:17 16 95 09/18/16 20:19 99.3 F 87 19 142/83 93 09/18/16 16:56 99.1 F 94 16 119/77 97 09/18/16 16:01 20 92 09/18/16 11:28 20 92 09/18/16 10:38 93 Intake and Output 09/18/16 09/19/16 09/19/16 23:59 07:59 15:59 Intake Total 1440 / 1440 490 / 490 240 / 240 Balance 1440 / 1440 490 / 490 240 / 240 Intake: IV Fluids 1200 / 1200 250 / 250 0.9 % Sodium Chloride 1, 1000 / 1000 000 ML @ 100 mls/hr IVC . Q10H PAUL Rx#:[id number] Unasyn 1,500 mg In 0.9 % 200 / 200 Sodium Chloride (Mini-Bag +) 100 ML @ 200 mls/hr IVPB Q8H PAUL Rx#: [id number] Vancocin 1,250 MG In 250 / 250 Dextrose 5% 250 ML @ 166. 667 mls/hr IVPB Q24H PAUL Rx#:[id number] Oral 240 / 240 240 / 240 240 / 240 Other: Meal Dinner Breakfast Percent of Meal Consumed 100% 100% # Voids 1 Weight 67.91 kg Patient Weight 09/19/16 23:59 Weight 67.91 kg - General Appearance General appearance: Present: well-developed, well-nourished, appears started age EENT: Present: ATNC, PERRL, mucous membranes moist Neck: Present: supple Cardiology: Present: no murmurs, no edema, regular rate, regular rhythm, normal S1, normal S2 Gastrointestinal: Present: normoactive bowel sounds, no tenderness, no guarding , no organomegaly Additional Comments: right hip abscess Neurologic: Present: no focal deficit, no asterixis, alert and oriented x3 Musculoskeletal: Present: no deformities, no erythema, no cyanosis Psychiatric: Present: mood/affect appropriate, cooperative - Lab 09/19/16 03:33 09/19/16 03:33 Most recent lab results Calcium 9.1 mg/dL (8.6-10.8) 09/19/16 03:33 Magnesium 1.6 mg/dL (1.6-2.6) 09/18/16 04:54 Urine Creatinine 55 mg/dL 09/18/16 10:30 Urine Total Protein 13 mg/dL (1-14) 09/18/16 10:30 - VTE Documentation of Mechanical Device: Intermittent pneumatic compression device Consult Discharge Plan - Plan Additional Instructions: You have an appointment with Cee Mtz September 24, 2016 at 1:45pm. Please bring social security card, medicaid, family income, and proof of address. Referrals: Trinidad Luna CNP [Advanced Practice Nurse] - 10/02/16 1:00 pm (Please bring Photo ID, insurance card, & any medications you are currently taking. If you are unable to keep this appointment please cancel with in 24 hours of this appointment time. ) Rebecca Mtz CNP [Advanced Practice Nurse] - 12/09/16 8:30 am
[2016-09-19] MEDS ORDERED: 0.9 % Sodium Chloride 1,000 ML IVC SCH (10:07)
[2016-09-19] MEDS: Budesonide/Formoterol 160/4.5 MDI IH SCH ×2 (10:15→22:18)
--- NOTE | 2016-09-19 11:39 | Internal Med Progress Note ---
Date of Encounter: 09/19/16 Time of Encounter: 11:39 - Assessment and plan (1) Hip hematoma, right Current Visit: Yes Status: Acute Assessment and plan: Etiology unknown Patient denies trauma, she suspects spider bite Plain films unremarkable. Hip CT revealing a soft tissue hematoma with no indication of an abscess or any fluid that could be drained. Extremity USS with possible abscess around hematoma Surgery has been consulted for recommendation or possible drainage, no fluctuancy on exam Continue Unasyn and renally dosed Vancomycin Qualifiers: Encounter type: initial encounter Qualified Code(s): S70.01XA - Contusion of right hip, initial encounter (2) COPD (chronic obstructive pulmonary disease) Current Visit: Yes Status: Chronic Assessment and plan: No acute exacerbation. Patient denies shortness of breath above her norm. Qualifiers: COPD type: unspecified COPD Qualified Code(s): J44.9 - Chronic obstructive pulmonary disease, unspecified (3) Smoker Current Visit: Yes Status: Chronic Assessment and plan: Declines counseling at this time, nicotine patch (4) STEVIE (acute kidney injury) Current Visit: Yes Status: Acute Assessment and plan: Improving STEVIE , pre-renal, possibly underlying CKD given proteinuria Patient may also have evidence of urinary retention, significant post-void volme without hydronephrosis Renal on board, appreciate recs Follow proteinura work up Continue tamsulosin (5) Sepsis Current Visit: Yes Status: Resolved Assessment and plan: Leukocytosis recurred again, 11.2 today compared to 8.6 yesterday Heart rate and blood pressure are stable. No lactic acidosis Urine and blood culture negative Cellulitis was source, improving Continue vanco and Zosyn Qualifiers: Sepsis type: sepsis due to unspecified organism Qualified Code(s): A41.9 - Sepsis, unspecified organism (6) Bipolar disorder Current Visit: Yes Status: Chronic Assessment and plan: mood and affect stable. Continue seroquel/prozac Qualifiers: Active/Remission status: remission status unspecified Qualified Code(s): F31.9 - Bipolar disorder, unspecified (7) Hypokalemia Current Visit: Yes Status: Acute Assessment and plan: will replete and trend. (8) Proteinuria Current Visit: Yes Status: Acute Assessment and plan: Follow proteinuria work up Qualifiers: Proteinuria type: isolated Qualified Code(s): R80.0 - Isolated proteinuria - Subjective Interval history: 55 F being managed for STEVIE, Right hip region cellulitis and hematoma, Sepsis as a result of this, Hypokalemia and COPD Seen at bedside "frustrated because her hematoma is worsening", otherwise denies new complains Extremity USS shows hematoma with possible surrounding abscess, Surgery is following, appreciate input Labs reveal leukocytosis this a,.m, Hb is stable considering patient was dehydrated and in STEVIE at time of admission She is on Vancomycin and Zosyn - Constitutional Vitals: Temp Pulse Resp BP Pulse Ox 98.1 F 72 14 119/74 92 09/19/16 08:25 09/19/16 08:25 09/19/16 08:25 09/19/16 08:25 09/19/16 09:38 General appearance: Present: A&O X 3, pleasant, no acute distress, answers questions appropriately - Head Head exam: Present: atraumatic, normocephalic - Eye Eye exam: Present: PERRL, conjuntiva pink, sclera anicteric Pupils: Present: PERRL - Neck Neck exam general surgery: Present: supple, trachea midline. Absent: lymphadenopathy - Respiratory Respiratory exam: Present: CTAB. Absent: accessory muscle use, rales, rhonchi, wheezes - Cardiovascular Cardiovascular exam: Present: RRR, +S1, +S2. Absent: diastolic murmur, gallop, rubs, systolic murmur - GI/Abdominal GI/Abdominal exam: Present: normal bowel sounds, soft, no peritoneal signs. Absent: distended, tenderness - Extremities Exam Additional comments: Right hip region redness, swelling , hard to firm, non -fluctuant, warm and tender. NO pedal edema, no circulatory compromise on RLE and LLE, no track ruiz on extremities - Neurological Exam Neurological exam: Present: alert, CN II-XII intact, oriented X3, no focal deficits. Absent: pronater drift, facial droop, speech deficit - Skin Skin exam: Present: dry, intact Internal Medicine: Result - Labs CBC & Chem 7: 09/19/16 03:33 09/19/16 03:33 Labs: Short CBC 09/19/16 Range/Units 03:33 WBC 11.2 H (4.3-11.1) K/mcL Hgb 9.2 L (11.5-15.4) g/dL Hct 27.8 L (35.3-44.9) % Plt Count 229 (140-400) K/mcL Neutrophils # 7.5 (1.6-8.9) K/mcL BMP 09/19/16 03:33 Sodium 140 Potassium 3.7 Chloride 109 Carbon Dioxide 23 BUN 17 Creatinine 1.47 H Glucose 110 H Calcium 9.1 - VTE Documentation of Mechanical Device: Intermittent pneumatic compression device Consult Discharge Plan - Plan Additional Instructions: You have an appointment with Cee Mtz September 24, 2016 at 1:45pm. Please bring social security card, medicaid, family income, and proof of address. Referrals: Trinidad Luna CNP [Advanced Practice Nurse] - 10/02/16 1:00 pm (Please bring Photo ID, insurance card, & any medications you are currently taking. If you are unable to keep this appointment please cancel with in 24 hours of this appointment time. ) Rebecca Mtz CNP [Advanced Practice Nurse] - 12/09/16 8:30 am
--- NOTE | 2016-09-19 11:40 | General Surgery Progress Note ---
Date of Encounter: 09/19/16 Time of Encounter: 11:33 Subjective Patient reports: no new complaints Narrative: General Surgery: Continued follow-up hematoma right hip. Patient expressing anxiety that the swelling has not improved. It has not noticeably progressed. The patient appears in no acute distress; afebrile, 98.1; pulse 72, respirations 14, blood pressure 119/74. The subcutaneous swelling right hip appears stable, proximally 7 cm in diameter. The overlying skin erythema has regressed. The right hip is nontender to my palpation. Impression: stable hematoma right hip; cannot exclude abscess but status appears stable since my evaluation of the patient yesterday. Radiologic and physical most consistent with hematoma. Mild leukocytosis noted - 11.2 Anemia with falling hemoglobin and hematocrit also noted; hemoglobin 9.2 with hematocrit 27.8 -likely reflective of the fluids administered to address the patient's chronic renal insufficiency. BUN has returned normal - 17, creatinine improved to 1.47; estimated GFR improved to 37. Recommendations: continue to apply heat. recheck in AM Objective Vital Signs - Last 8 Hours Temp Pulse Resp BP Pulse Ox 09/19/16 09:38 92 09/19/16 08:25 98.1 F 72 14 119/74 92 09/19/16 04:57 97.7 F 77 18 106/61 99 Intake and Output 09/18/16 09/19/16 09/19/16 23:59 07:59 15:59 Intake Total 1440 / 1440 490 / 490 1240 / 1240 Balance 1440 / 1440 490 / 490 1240 / 1240 Intake: IV Fluids 1200 / 1200 250 / 250 1000 / 1000 0.9 % Sodium Chloride 1, 1000 / 1000 1000 / 1000 000 ML @ 100 mls/hr IVC . Q10H PAUL Rx#:[id number] Unasyn 1,500 mg In 0.9 % 200 / 200 Sodium Chloride (Mini-Bag +) 100 ML @ 200 mls/hr IVPB Q8H PAUL Rx#: [id number] Vancocin 1,250 MG In 250 / 250 Dextrose 5% 250 ML @ 166. 667 mls/hr IVPB Q24H PAUL Rx#:[id number] Oral 240 / 240 240 / 240 240 / 240 Other: Meal Dinner Breakfast Percent of Meal Consumed 100% 100% # Voids 1 Weight 67.91 kg Patient Weight 09/19/16 23:59 Weight 67.91 kg - Labs 09/19/16 03:33 09/19/16 03:33 Diabetes panel 09/19/16 Range/Units 03:33 Sodium 140 (136-145) mEq/L Potassium 3.7 (3.5-4.5) mEq/L Chloride 109 (98-109) mEq/L Carbon Dioxide 23 (19-29) mEq/L BUN 17 (7-20) mg/dL Creatinine 1.47 H (0.57-1.11) mg/dL Glucose 110 H (70-99) mg/dL Calcium 9.1 (8.6-10.8) mg/dL Calcium panel 09/19/16 Range/Units 03:33 Calcium 9.1 (8.6-10.8) mg/dL Pituitary panel 09/19/16 Range/Units 03:33 Sodium 140 (136-145) mEq/L Potassium 3.7 (3.5-4.5) mEq/L Chloride 109 (98-109) mEq/L Carbon Dioxide 23 (19-29) mEq/L BUN 17 (7-20) mg/dL Creatinine 1.47 H (0.57-1.11) mg/dL Glucose 110 H (70-99) mg/dL Calcium 9.1 (8.6-10.8) mg/dL Adrenal panel 09/19/16 Range/Units 03:33 Sodium 140 (136-145) mEq/L Potassium 3.7 (3.5-4.5) mEq/L Chloride 109 (98-109) mEq/L Carbon Dioxide 23 (19-29) mEq/L BUN 17 (7-20) mg/dL Creatinine 1.47 H (0.57-1.11) mg/dL Glucose 110 H (70-99) mg/dL Calcium 9.1 (8.6-10.8) mg/dL - VTE Documentation of Mechanical Device: Intermittent pneumatic compression device Consult Discharge Plan - Plan Additional Instructions: You have an appointment with Cee Mtz September 24, 2016 at 1:45pm. Please bring social security card, medicaid, family income, and proof of address. Referrals: Trinidad Luna CNP [Advanced Practice Nurse] - 10/02/16 1:00 pm (Please bring Photo ID, insurance card, & any medications you are currently taking. If you are unable to keep this appointment please cancel with in 24 hours of this appointment time. ) Rebecca Mtz, JANE [Advanced Practice Nurse] - 12/09/16 8:30 am
[2016-09-19 11:53] LABS: Complement Component 4 62 mg/dL (10-40)
[2016-09-19 11:55] LABS: Complement Component 3 160 mg/dL (88-201)
[2016-09-19 16:42] LABS: HIV-1 Ab Supplemental NEGATIVE (Negative); HIV-2 Ab Supplemental NEGATIVE (Negative)
[2016-09-19 19:54] LABS: Kappa Qnt Free Light Chains 4.92 mg/dL (0.33-1.94); Lambda Qnt Free Light Chains 3.51 mg/dL (0.57-2.63)
[2016-09-20] MEDS: Vancomycin 1,250 MG in D5% in Water 250 ML IVPB SCH (00:04)
[2016-09-20] MEDS: *HR* Morphine 2 MG/ML SYRINGE IVP PRN ×7 (00:04→21:28)
[2016-09-20] MEDS: Ipratropium/Albuterol Neb 3 ML IH SCH ×4 (04:28→21:07)
[2016-09-20 04:50] LABS: Basophils % 0.2 %; Eosinophils # 0.5 K/mcL (0.0-0.6); Eosinophils % 4.9 %; Hematocrit 28.7 % (35.3-44.9); Hemoglobin 9.4 g/dL (11.5-15.4); Lymphocytes # 2.4 K/mcL (0.6-4.6); Lymphocytes % 22.8 %; Mean Corpuscular HGB Conc 32.8 g/dL (31.6-35.5); Mean Corpuscular Hemoglobin 29.9 pg (28.0-33.3); Mean Corpuscular Volume 91.4 fL (83.0-100.0); Mean Platelet Volume 10.6 fL (9.4-12.4); Monocytes # 0.8 K/mcL (0.0-1.3); Monocytes % 7.9 %; Neutrophils # 6.5 K/mcL (1.6-8.9); Platelet Count 253 K/mcL (140-400); Red Blood Count 3.14 M/mcL (3.82-4.97); Red Cell Distribution Width 13.5 % (11.5-14.5); Segmented Neutrophils % 63.2 %
[2016-09-20] MEDS: *HR* HYDROcodone/Acet 5/325 mg TABLET PO PRN ×4 (04:57→19:59)
[2016-09-20 05:05] LABS: Calcium 9.1 mg/dL (8.6-10.8); Potassium 3.8 mEq/L (3.5-4.5)
[2016-09-20] MEDS: Ampicillin/Sulbactam 1,500 MG in 0.9 % Sodium Chloride Mini Bag 100 ML IVPB SCH ×3 (06:16→23:06)
[2016-09-20] MEDS: Fluticasone Propionate Nasal 50 MCG/SPRAY BOTTLE NS SCH (09:39)
[2016-09-20] MEDS: Gabapentin 400 MG CAPSULE PO SCH (09:40)
[2016-09-20] MEDS: Nicotine 21 MG PATCH.TD24 TD SCH (09:40)
--- NOTE | 2016-09-20 09:45 | Internal Med Progress Note ---
Date of Encounter: 09/20/16 Time of Encounter: 09:45 - Assessment and plan (1) Hip hematoma, right Current Visit: Yes Status: Acute Assessment and plan: Etiology unknown Patient denies trauma Plain films unremarkable. Hip CT revealing a soft tissue hematoma with no indication of an abscess or any fluid that could be drained. Extremity USS with possible abscess around hematoma Surgery has been consulted for recommendation or possible drainage, hip exam today with fluctuancy Day 3 on Unasyn and Vanco, vanco trough sub-therapeutic Continue Unasyn and renally dosed Vancomycin Qualifiers: Encounter type: initial encounter Qualified Code(s): S70.01XA - Contusion of right hip, initial encounter (2) COPD (chronic obstructive pulmonary disease) Current Visit: Yes Status: Chronic Assessment and plan: No acute exacerbation. Patient denies shortness of breath above her norm. Qualifiers: COPD type: unspecified COPD Qualified Code(s): J44.9 - Chronic obstructive pulmonary disease, unspecified (3) Smoker Current Visit: Yes Status: Chronic Assessment and plan: Counselled on tobacco cessation, nicotine patch (4) STEVIE (acute kidney injury) Current Visit: Yes Status: Acute Assessment and plan: Improving STEVIE , pre-renal, possibly underlying CKD given proteinuria Patient may also have evidence of urinary retention, significant post-void volme without hydronephrosis Renal on board, appreciate recs Continue tamsulosin (5) Sepsis Current Visit: Yes Status: Resolved Assessment and plan: Leukocytosis improved Heart rate and blood pressure are stable. No lactic acidosis Urine and blood culture negative Cellulitis was source, improving Continue vanco and Zosyn Qualifiers: Sepsis type: sepsis due to unspecified organism Qualified Code(s): A41.9 - Sepsis, unspecified organism (6) Bipolar disorder Current Visit: Yes Status: Chronic Assessment and plan: mood and affect stable. Continue seroquel/prozac Qualifiers: Active/Remission status: remission status unspecified Qualified Code(s): F31.9 - Bipolar disorder, unspecified (7) Hypokalemia Current Visit: Yes Status: Acute Assessment and plan: Resolved K WNL today (8) Proteinuria Current Visit: Yes Status: Acute Assessment and plan: Follow proteinuria work up Qualifiers: Proteinuria type: isolated Isolated proteinuria type: with unspecified morphologic lesion Qualified Code(s): N06.9 - Isolated proteinuria with unspecified morphologic lesion (9) Anemia Current Visit: Yes Status: Chronic Assessment and plan: Start iron replacement po Qualifiers: Anemia type: iron deficiency Iron deficiency anemia type: unspecified iron deficiency Qualified Code(s): D50.9 - Iron deficiency anemia, unspecified - Subjective Interval history: 55 F being managed for STEVIE, Right hip region cellulitis and hematoma, Sepsis as a result of this, Hypokalemia and COPD Seen at bedside Complains of constipation STEVIE has removed remarkably, anemia work up shows iron deficiency R Extremity USS shows hematoma with possible surrounding abscess, Surgery is following, appreciate input Leukocytosis has improved day 3 on Unasyn and Vanco Her right hip hematoma is more fluctuant today - Constitutional Vitals: Temp Pulse Resp BP Pulse Ox 98.2 F 76 18 135/75 92 09/20/16 07:23 09/20/16 07:23 09/20/16 07:23 09/20/16 07:23 09/20/16 07:23 General appearance: Present: A&O X 3, pleasant, no acute distress, answers questions appropriately - Head Head exam: Present: atraumatic, normocephalic - Eye Eye exam: Present: PERRL, conjuntiva pink, sclera anicteric Pupils: Present: PERRL - Neck Neck exam general surgery: Present: supple, trachea midline. Absent: lymphadenopathy - Respiratory Respiratory exam: Present: CTAB. Absent: accessory muscle use, rales, rhonchi, wheezes - Cardiovascular Cardiovascular exam: Present: RRR, +S1, +S2. Absent: diastolic murmur, gallop, rubs, systolic murmur - GI/Abdominal GI/Abdominal exam: Present: normal bowel sounds, soft, no peritoneal signs. Absent: distended, tenderness - Extremities Exam Extremities exam: Present: warm, radial pulses palpable and symetrical. Absent : calf tenderness, cyanotic, pedal edema Additional comments: R hip diffuse hematoma with fluctuancy today, r ingunal lymphadenopathy - Neurological Exam Neurological exam: Present: alert, CN II-XII intact, normal gait, oriented X3, no focal deficits. Absent: pronater drift, facial droop, speech deficit - Skin Skin exam: Present: dry, intact Internal Medicine: Result - Labs CBC & Chem 7: 09/20/16 03:51 09/20/16 03:51 Labs: Short CBC 09/20/16 Range/Units 03:51 WBC 10.3 (4.3-11.1) K/mcL Hgb 9.4 L (11.5-15.4) g/dL Hct 28.7 L (35.3-44.9) % Plt Count 253 (140-400) K/mcL Neutrophils # 6.5 (1.6-8.9) K/mcL BMP 09/20/16 03:51 Sodium 139 Potassium 3.8 Chloride 108 Carbon Dioxide 19 BUN 15 Creatinine 1.19 H Glucose 105 H Calcium 9.1 - VTE Documentation of Mechanical Device: Intermittent pneumatic compression device Consult Discharge Plan - Plan Additional Instructions: You have an appointment with Cee Mtz September 24, 2016 at 1:45pm. Please bring social security card, medicaid, family income, and proof of address. Referrals: Trinidad Luna CNP [Advanced Practice Nurse] - 10/02/16 1:00 pm (Please bring Photo ID, insurance card, & any medications you are currently taking. If you are unable to keep this appointment please cancel with in 24 hours of this appointment time. ) Rebecca Mtz CNP [Advanced Practice Nurse] - 12/09/16 8:30 am
[2016-09-20] MEDS: FLUoxetine 20 MG CAPSULE PO SCH (09:53)
[2016-09-20] MEDS: Budesonide/Formoterol 160/4.5 MDI IH SCH ×2 (10:17→21:07)
[2016-09-20] MEDS ORDERED: Sennosides 8.6 MG TABLET PO ONE (10:45)
[2016-09-20] MEDS: Ascorbic Acid 500 MG TABLET PO SCH (11:09)
--- NOTE | 2016-09-20 11:39 | Nephrology Progress Note ---
Date of Encounter: 09/20/16 Time of Encounter: 11:37 - Assessment and Plan (1) STEVIE (acute kidney injury) Current Visit: Yes Status: Acute Resolving with IVF, but since she is consuming liquids well, I had decreased her IVF yesterday and will stop them today. Renal U/S was reassuring. Hx of HCV and there was 100 protein on the UA: pending GN serologies, but thus far the RF was normal and C3 and C4 were not low. Doing well from a nephrology perspective, but cont to follow a renal protective strategy: avoid nephrotoxic Rx and dose Rx by GFR Thank you. (2) Dehydration Current Visit: Yes Status: Acute See above (3) Hip hematoma, right Current Visit: Yes Status: Acute General Surgery following Qualifiers: Encounter type: initial encounter Qualified Code(s): S70.01XA - Contusion of right hip, initial encounter (4) Hypokalemia Current Visit: Yes Status: Acute Improved (5) Proteinuria Current Visit: Yes Status: Acute See above Qualifiers: Proteinuria type: isolated Isolated proteinuria type: with unspecified morphologic lesion Qualified Code(s): N06.9 - Isolated proteinuria with unspecified morphologic lesion Subjective Principal diagnosis: STEVIE Interval history: Pt was s/e earlier today. She did not affirm N/V/D abd pain or uremic symptoms. She said her appetitie is slowly improving. General surgery following. Objective - Vital Signs Vital signs: Vital Signs Temp Pulse Resp BP Pulse Ox 09/20/16 11:16 98.3 F 74 16 132/85 94 09/20/16 10:17 16 94 09/20/16 09:34 94 09/20/16 07:23 98.2 F 76 18 135/75 92 09/20/16 05:19 98.4 F 81 18 142/87 93 09/20/16 00:28 99.0 F 80 18 104/58 90 09/19/16 22:19 18 93 09/19/16 21:02 99.0 F 89 18 149/72 93 09/19/16 20:44 95 09/19/16 17:38 99.3 F 85 16 151/89 95 09/19/16 15:18 20 94 09/19/16 11:48 98.5 F 80 14 112/77 94 Intake and Output 09/19/16 09/20/16 09/20/16 23:59 07:59 15:59 Intake Total 600 / 600 250 / 250 340 / 340 Balance 600 / 600 250 / 250 340 / 340 Intake: IV Fluids 200 / 200 250 / 250 100 / 100 Unasyn 1,500 mg In 0.9 % 200 / 200 100 / 100 Sodium Chloride (Mini-Bag +) 100 ML @ 200 mls/hr IVPB Q8H PAUL Rx#: [id number] Vancocin 1,250 MG In 250 / 250 Dextrose 5% 250 ML @ 166. 667 mls/hr IVPB Q24H PAUL Rx#:[id number] Oral 400 / 400 240 / 240 Other: Meal Dinner Breakfast Percent of Meal Consumed 0% 50% Weight 67.9 kg Patient Weight 09/20/16 23:59 Weight 67.9 kg - General Appearance General appearance: Present: well-developed, well-nourished, appears started age EENT: Present: ATNC, PERRL, mucous membranes moist Neck: Present: supple Respiratory: Present: clear Cardiology: Present: no murmurs, no edema, regular rate, normal S1, normal S2 Gastrointestinal: Present: normoactive bowel sounds, no tenderness, no guarding Additional Comments: right hip hematoma/abscess Neurologic: Present: no focal deficit, no asterixis, alert and oriented x3 Musculoskeletal: Present: no deformities, no erythema, no cyanosis Psychiatric: Present: mood/affect appropriate, cooperative - Lab 09/20/16 03:51 09/20/16 03:51 Most recent lab results Calcium 9.1 mg/dL (8.6-10.8) 09/20/16 03:51 Magnesium 1.6 mg/dL (1.6-2.6) 09/18/16 04:54 Urine Creatinine 55 mg/dL 09/18/16 10:30 Urine Total Protein 13 mg/dL (1-14) 09/18/16 10:30 - VTE Documentation of Mechanical Device: Intermittent pneumatic compression device Consult Discharge Plan - Plan Additional Instructions: You have an appointment with Cee Mtz September 24, 2016 at 1:45pm. Please bring social security card, medicaid, family income, and proof of address. Referrals: Trinidad Luna STRUCTURAL ARCHITECT [Advanced Practice Nurse] - 10/02/16 1:00 pm (Please bring Photo ID, insurance card, & any medications you are currently taking. If you are unable to keep this appointment please cancel with in 24 hours of this appointment time. ) Rebecca Mtz, JANE [Advanced Practice Nurse] - 12/09/16 8:30 am
--- NOTE | 2016-09-20 14:52 | General Surgery Progress Note ---
Date of Encounter: 09/20/16 Time of Encounter: 14:48 Subjective Patient reports: no new complaints Narrative: General Surgery : continued follow up hematoma right hip Status post stable, patient voicing no complaints. No noticeable enlargement of the subcutaneous swelling right hip. Patient remains afebrile, 98.3; pulse 74, respirations 16, blood pressure stable at 132/85. Leukocytosis resolved, 10.3; hemoglobin 10.9.4, hematocrit 28.7 - essentially stable in the last 48 hours. BUN/creatinine 15 and 1.19 respectively - post continued to improve; estimated GFR 47, also improved. Impression: stable hematoma right hip Plan: repeat US in AM - if liquifying may be able to aspirate to reduce the swelling and pressure if evidence more suggestive abscess - may require I&D under anesthesia. Objective Vital Signs - Last 8 Hours Temp Pulse Resp BP Pulse Ox 09/20/16 11:16 98.3 F 74 16 132/85 94 09/20/16 10:17 16 94 09/20/16 09:34 94 09/20/16 07:23 98.2 F 76 18 135/75 92 Intake and Output 09/19/16 09/20/16 09/20/16 23:59 07:59 15:59 Intake Total 600 / 600 250 / 250 700 / 700 Balance 600 / 600 250 / 250 700 / 700 Intake: IV Fluids 200 / 200 250 / 250 100 / 100 Unasyn 1,500 mg In 0.9 % 200 / 200 100 / 100 Sodium Chloride (Mini-Bag +) 100 ML @ 200 mls/hr IVPB Q8H PAUL Rx#: [id number] Vancocin 1,250 MG In 250 / 250 Dextrose 5% 250 ML @ 166. 667 mls/hr IVPB Q24H PAUL Rx#:[id number] Oral 400 / 400 600 / 600 Other: Meal Dinner Lunch Percent of Meal Consumed 0% 95% Weight 67.9 kg Patient Weight 09/20/16 23:59 Weight 67.9 kg - Labs 09/20/16 03:51 09/20/16 03:51 Diabetes panel 09/20/16 Range/Units 03:51 Sodium 139 (136-145) mEq/L Potassium 3.8 (3.5-4.5) mEq/L Chloride 108 (98-109) mEq/L Carbon Dioxide 19 (19-29) mEq/L BUN 15 (7-20) mg/dL Creatinine 1.19 H (0.57-1.11) mg/dL Glucose 105 H (70-99) mg/dL Calcium 9.1 (8.6-10.8) mg/dL Calcium panel 09/20/16 Range/Units 03:51 Calcium 9.1 (8.6-10.8) mg/dL Pituitary panel 09/20/16 Range/Units 03:51 Sodium 139 (136-145) mEq/L Potassium 3.8 (3.5-4.5) mEq/L Chloride 108 (98-109) mEq/L Carbon Dioxide 19 (19-29) mEq/L BUN 15 (7-20) mg/dL Creatinine 1.19 H (0.57-1.11) mg/dL Glucose 105 H (70-99) mg/dL Calcium 9.1 (8.6-10.8) mg/dL Adrenal panel 09/20/16 Range/Units 03:51 Sodium 139 (136-145) mEq/L Potassium 3.8 (3.5-4.5) mEq/L Chloride 108 (98-109) mEq/L Carbon Dioxide 19 (19-29) mEq/L BUN 15 (7-20) mg/dL Creatinine 1.19 H (0.57-1.11) mg/dL Glucose 105 H (70-99) mg/dL Calcium 9.1 (8.6-10.8) mg/dL - VTE Documentation of Mechanical Device: Intermittent pneumatic compression device Consult Discharge Plan - Plan Additional Instructions: You have an appointment with Cee Mtz September 24, 2016 at 1:45pm. Please bring social security card, medicaid, family income, and proof of address. Referrals: Trinidad Luna CNP [Advanced Practice Nurse] - 10/02/16 1:00 pm (Please bring Photo ID, insurance card, & any medications you are currently taking. If you are unable to keep this appointment please cancel with in 24 hours of this appointment time. ) Rebecca Mtz CNP [Advanced Practice Nurse] - 12/09/16 8:30 am
[2016-09-20] MEDS: Vancomycin 1,000 MG in D5% in Water 250 ML IVPB SCH (23:07)
[2016-09-21 01:01] LABS: Alpha 2 Globulin (PEP) 0.97 g/dL (0.48-1.05); Beta Globulin (PEP) 0.69 g/dL (0.48-1.10)
[2016-09-21] MEDS: *HR* Morphine 2 MG/ML SYRINGE IVP PRN ×7 (02:38→23:53)
[2016-09-21] MEDS: *HR* HYDROcodone/Acet 5/325 mg TABLET PO PRN ×4 (03:51→18:20)
[2016-09-21 04:11] LABS: Basophils % 0.2 %; Eosinophils # 0.5 K/mcL (0.0-0.6); Eosinophils % 5.8 %; Hematocrit 28.6 % (35.3-44.9); Hemoglobin 9.3 g/dL (11.5-15.4); Immature Granulocytes % 1.1 % (0-4); Lymphocytes % 22.9 %; Mean Corpuscular HGB Conc 32.5 g/dL (31.6-35.5); Mean Corpuscular Hemoglobin 29.4 pg (28.0-33.3); Mean Corpuscular Volume 90.5 fL (83.0-100.0); Mean Platelet Volume 9.9 fL (9.4-12.4); Monocytes # 0.7 K/mcL (0.0-1.3); Monocytes % 7.7 %; Neutrophils # 5.4 K/mcL (1.6-8.9); Platelet Count 263 K/mcL (140-400); Red Blood Count 3.16 M/mcL (3.82-4.97); Red Cell Distribution Width 13.2 % (11.5-14.5); Segmented Neutrophils % 62.3 %
[2016-09-21 04:13] LABS: Calcium 8.7 mg/dL (8.6-10.8); Potassium 3.4 mEq/L (3.5-4.5)
[2016-09-21] MEDS: Ipratropium/Albuterol Neb 3 ML IH SCH ×4 (05:39→23:37)
[2016-09-21] MEDS: Ampicillin/Sulbactam 1,500 MG in 0.9 % Sodium Chloride Mini Bag 100 ML IVPB SCH ×3 (06:02→23:53)
--- NOTE | 2016-09-21 06:50 | Event Note ---
Date of Encounter: 09/21/16 Time of Encounter: 06:48 Nephrology Chart Review The pt's SCr continues to quickly rebound. I recommend ongoing renal protective measures, but at this point I will sign-off. Please help arrange a hospital follow-up appt with me in about 3-6 weeks, re: STEVIE.
[2016-09-21] MEDS: Nicotine 21 MG PATCH.TD24 TD SCH (08:32)
[2016-09-21] MEDS: Ascorbic Acid 500 MG TABLET PO SCH (08:34)
[2016-09-21] MEDS: Gabapentin 400 MG CAPSULE PO SCH (08:34)
[2016-09-21] MEDS: FLUoxetine 20 MG CAPSULE PO SCH (08:34)
[2016-09-21] MEDS: Fluticasone Propionate Nasal 50 MCG/SPRAY BOTTLE NS SCH (08:36)
[2016-09-21] MEDS: Budesonide/Formoterol 160/4.5 MDI IH SCH ×3 (11:19→23:38)
[2016-09-21] MEDS: Vancomycin 1,000 MG in D5% in Water 250 ML IVPB SCH (11:51)
--- NOTE | 2016-09-21 12:08 | Internal Med Progress Note ---
Date of Encounter: 09/21/16 Time of Encounter: 12:08 - Assessment and plan (1) Hip hematoma, right Current Visit: Yes Status: Acute Assessment and plan: Etiology unknown Patient denies trauma Plain films unremarkable. Hip CT revealing a soft tissue hematoma with no indication of an abscess or any fluid that could be drained. Extremity USS 09/17: with possible abscess around hematoma Extremity USS this a.m: Possibly increasing hematoma Surgery is following Day 4 on Unasyn and Vanco, continue same Monitor vanco trough Qualifiers: Encounter type: initial encounter Qualified Code(s): S70.01XA - Contusion of right hip, initial encounter (2) COPD (chronic obstructive pulmonary disease) Current Visit: Yes Status: Chronic Assessment and plan: No acute exacerbation. Patient denies shortness of breath above her norm. Qualifiers: COPD type: unspecified COPD Qualified Code(s): J44.9 - Chronic obstructive pulmonary disease, unspecified (3) Smoker Current Visit: Yes Status: Chronic Assessment and plan: Counselled on tobacco cessation, nicotine patch (4) STEVIE (acute kidney injury) Current Visit: Yes Status: Acute Assessment and plan: Improving STEVIE , pre-renal, possibly underlying CKD given proteinuria Patient may also have evidence of urinary retention, significant post-void volme without hydronephrosis Renal on board, appreciate recs Continue tamsulosin (5) Sepsis Current Visit: Yes Status: Resolved Assessment and plan: Leukocytosis improved Heart rate and blood pressure are stable. No lactic acidosis Urine and blood culture negative Cellulitis was source, improving Continue vanco and Zosyn Qualifiers: Sepsis type: sepsis due to unspecified organism Qualified Code(s): A41.9 - Sepsis, unspecified organism (6) Bipolar disorder Current Visit: Yes Status: Chronic Assessment and plan: Self-mentioned patient not particularly following up with a psychiatrist mood and affect stable. Continue seroquel/prozac Qualifiers: Active/Remission status: remission status unspecified Qualified Code(s): F31.9 - Bipolar disorder, unspecified (7) Hypokalemia Current Visit: Yes Status: Acute Assessment and plan: Resolved K 3.4, d.cc IVF (8) Proteinuria Current Visit: Yes Status: Acute Assessment and plan: Follow proteinuria work up Qualifiers: Proteinuria type: isolated Isolated proteinuria type: with unspecified morphologic lesion Qualified Code(s): N06.9 - Isolated proteinuria with unspecified morphologic lesion (9) Anemia Current Visit: Yes Status: Chronic Assessment and plan: CAMILO Continue Iron replacement Qualifiers: Anemia type: iron deficiency Iron deficiency anemia type: unspecified iron deficiency Qualified Code(s): D50.9 - Iron deficiency anemia, unspecified - Subjective Interval history: 55 F being managed for STEVIE, Right hip region cellulitis and hematoma, Sepsis as a result of this, Hypokalemia and COPD Seen at bedside No new complains STEVIE has removed remarkably, anemia work up shows iron deficiency R Extremity USS repeated today shows hematoma, she is awaiting surgery evaluation today Leukocytosis has resolved day 4 on Unasyn and Vanco - Constitutional Vitals: Temp Pulse Resp BP Pulse Ox 97.9 F 70 16 129/84 97 09/21/16 11:49 09/21/16 11:49 09/21/16 11:49 09/21/16 11:49 09/21/16 11:49 General appearance: Present: A&O X 3, pleasant, no acute distress, answers questions appropriately - Head Head exam: Present: atraumatic, normocephalic - Eye Eye exam: Present: PERRL, conjuntiva pink, sclera anicteric Pupils: Present: PERRL - Neck Neck exam general surgery: Present: supple, trachea midline. Absent: lymphadenopathy - Respiratory Respiratory exam: Present: CTAB. Absent: accessory muscle use, rales, rhonchi, wheezes - Cardiovascular Cardiovascular exam: Present: RRR, +S1, +S2. Absent: diastolic murmur, gallop, rubs, systolic murmur - GI/Abdominal GI/Abdominal exam: Present: normal bowel sounds, soft, no peritoneal signs. Absent: distended, tenderness - Extremities Exam Extremities exam: Present: warm, radial pulses palpable and symetrical. Absent : calf tenderness, cyanotic, pedal edema Additional comments: R hip diffuse hematoma with fluctuancy today, r ingunal lymphadenopathy - Neurological Exam Neurological exam: Present: alert, CN II-XII intact, oriented X3, no focal deficits. Absent: pronater drift, facial droop, speech deficit - Skin Skin exam: Present: dry, intact Internal Medicine: Result - Labs CBC & Chem 7: 09/21/16 03:44 09/21/16 03:44 Labs: Short CBC 09/21/16 Range/Units 03:44 WBC 8.7 (4.3-11.1) K/mcL Hgb 9.3 L (11.5-15.4) g/dL Hct 28.6 L (35.3-44.9) % Plt Count 263 (140-400) K/mcL Neutrophils # 5.4 (1.6-8.9) K/mcL BMP 09/21/16 03:44 Sodium 140 Potassium 3.4 L Chloride 107 Carbon Dioxide 23 BUN 14 Creatinine 1.15 H Glucose 141 H Calcium 8.7 - VTE Documentation of Mechanical Device: Intermittent pneumatic compression device Consult Discharge Plan - Plan Additional Instructions: You have an appointment with Cee Mtz September 24, 2016 at 1:45pm. Please bring social security card, medicaid, family income, and proof of address. Referrals: Trinidad Luna CNP [Advanced Practice Nurse] - 10/02/16 1:00 pm (Please bring Photo ID, insurance card, & any medications you are currently taking. If you are unable to keep this appointment please cancel with in 24 hours of this appointment time. ) Rebecca Mtz CNP [Advanced Practice Nurse] - 12/09/16 8:30 am
[2016-09-21 14:44] LABS: ANA IgG by ELISA DETECTED (None Detected)
--- NOTE | 2016-09-21 18:12 | General Surgery Procedure Note ---
Date of procedure: 09/21/16 Pre-op diagnosis: hematoma right hip Post-op diagnosis: other (abscess right hip) Procedure: needle aspiration right hip Findings: 15 mL pus aspirated from large subcutaneous mass right hip. Aerobic and anaerobic cultures obtained. Anesthesia: none Surgeon: Robles Schafer Pathology: other (aerobic and anaerobic cultures)
--- NOTE | 2016-09-21 18:20 | General Surgery Progress Note ---
Date of Encounter: 09/21/16 Time of Encounter: 17:50 Subjective Patient reports: no new complaints Narrative: General Surgery : Patient status appears stable; patient remains afebrile and hemodynamically stable; pulse 76, respirations 18, blood pressure 129/84 Persistent swelling without obvious enlargement right hip. Repeat sonogram of this area personally reviewed with [facility]. The sonogram describes an irregular collection within the subcutaneous tissue measuring 9.2 x 7.6 x 4.7 cm. This is slightly increased from prior exams though not clinically evident. There was no significant enhancement to suggest an abscess but the enlargement is concerning. This was discussed with the patient. Needle aspiration was recommended. Risks include hemorrhage and introduction infection if currently not infected. The aspiration may result in reduction in the amount of fluid and reduce the "pressure" the patient is experiencing. After obtaining the patient's consent, the skin was prepped with betadine. Using a 19G needle, approx 15 mL pus was aspirated without difficulty. A dry sterile dressing was applied. The fluid was sent for aerobic and anaerobic cultures The patient tolerated the aspiration well. The results were discussed with the patient. The patient will be scheduled for I&D in the AM under anesthesia as the patient had just had dinner. Risks of surgery include hemorrhage, infection , persistent/recurrent abscess, scarring and failure to heal Objective Vital Signs - Last 8 Hours Temp Pulse Resp BP Pulse Ox 09/21/16 16:02 97.6 F 76 16 154/102 94 09/21/16 14:27 16 97 09/21/16 11:49 97.9 F 70 16 129/84 97 Intake and Output 09/21/16 09/21/16 09/21/16 07:59 15:59 23:59 Intake Total 350 / 350 560 / 560 240 / 240 Balance 350 / 350 560 / 560 240 / 240 Intake: IV Fluids 350 / 350 Unasyn 1,500 mg In 0.9 % 100 / 100 Sodium Chloride (Mini-Bag +) 100 ML @ 200 mls/hr IVPB Q8H PAUL Rx#: [id number] Vancocin 1,000 MG In 250 / 250 Dextrose 5% 250 ML @ 166. 667 mls/hr IVPB Q12H PAUL Rx#:[id number] Oral 560 / 560 240 / 240 Other: Meal Lunch Dinner Percent of Meal Consumed 95% 100% Weight 67.89 kg Patient Weight 09/21/16 23:59 Weight 67.89 kg - Labs 09/21/16 03:44 09/21/16 03:44 Diabetes panel 09/21/16 Range/Units 03:44 Sodium 140 (136-145) mEq/L Potassium 3.4 L (3.5-4.5) mEq/L Chloride 107 (98-109) mEq/L Carbon Dioxide 23 (19-29) mEq/L BUN 14 (7-20) mg/dL Creatinine 1.15 H (0.57-1.11) mg/dL Glucose 141 H (70-99) mg/dL Calcium 8.7 (8.6-10.8) mg/dL Calcium panel 09/21/16 Range/Units 03:44 Calcium 8.7 (8.6-10.8) mg/dL Pituitary panel 09/21/16 Range/Units 03:44 Sodium 140 (136-145) mEq/L Potassium 3.4 L (3.5-4.5) mEq/L Chloride 107 (98-109) mEq/L Carbon Dioxide 23 (19-29) mEq/L BUN 14 (7-20) mg/dL Creatinine 1.15 H (0.57-1.11) mg/dL Glucose 141 H (70-99) mg/dL Calcium 8.7 (8.6-10.8) mg/dL Adrenal panel 09/21/16 Range/Units 03:44 Sodium 140 (136-145) mEq/L Potassium 3.4 L (3.5-4.5) mEq/L Chloride 107 (98-109) mEq/L Carbon Dioxide 23 (19-29) mEq/L BUN 14 (7-20) mg/dL Creatinine 1.15 H (0.57-1.11) mg/dL Glucose 141 H (70-99) mg/dL Calcium 8.7 (8.6-10.8) mg/dL - VTE Documentation of Mechanical Device: Intermittent pneumatic compression device Consult Discharge Plan - Plan Additional Instructions: You have an appointment with Cee Mtz September 24, 2016 at 1:45pm. Please bring social security card, medicaid, family income, and proof of address. Referrals: Trinidad Luna CNP [Advanced Practice Nurse] - 10/02/16 1:00 pm (Please bring Photo ID, insurance card, & any medications you are currently taking. If you are unable to keep this appointment please cancel with in 24 hours of this appointment time. ) Rebecca Mtz, JANE [Advanced Practice Nurse] - 12/09/16 8:30 am
[2016-09-22] MEDS: Vancomycin 1,000 MG in D5% in Water 250 ML IVPB SCH ×3 (00:30→13:08)
[2016-09-22] MEDS: *HR* Morphine 2 MG/ML SYRINGE IVP PRN ×5 (03:20→20:38)
[2016-09-22 03:58] LABS: Basophils % 0.3 %; Eosinophils # 0.5 K/mcL (0.0-0.6); Eosinophils % 6.2 %; Hematocrit 29.1 % (35.3-44.9); Hemoglobin 9.5 g/dL (11.5-15.4); Immature Granulocytes % 1.3 % (0-4); Lymphocytes # 1.8 K/mcL (0.6-4.6); Lymphocytes % 22.4 %; Mean Corpuscular HGB Conc 32.6 g/dL (31.6-35.5); Mean Corpuscular Hemoglobin 29.4 pg (28.0-33.3); Mean Corpuscular Volume 90.1 fL (83.0-100.0); Mean Platelet Volume 10.1 fL (9.4-12.4); Monocytes # 0.6 K/mcL (0.0-1.3); Monocytes % 7.9 %; Neutrophils # 4.8 K/mcL (1.6-8.9); Platelet Count 243 K/mcL (140-400); Red Blood Count 3.23 M/mcL (3.82-4.97); Red Cell Distribution Width 13.2 % (11.5-14.5); Segmented Neutrophils % 61.9 %
[2016-09-22] MEDS: Ipratropium/Albuterol Neb 3 ML IH SCH ×4 (04:40→23:08)
[2016-09-22] MEDS: Ampicillin/Sulbactam 1,500 MG in 0.9 % Sodium Chloride Mini Bag 100 ML IVPB SCH ×3 (06:09→22:10)
[2016-09-22] MEDS: Nicotine 21 MG PATCH.TD24 TD SCH (08:17)
[2016-09-22] MEDS: Ascorbic Acid 500 MG TABLET PO SCH (08:17)
[2016-09-22] MEDS: Gabapentin 400 MG CAPSULE PO SCH (08:17)
[2016-09-22] MEDS: FLUoxetine 20 MG CAPSULE PO SCH (08:17)
[2016-09-22] MEDS: *HR* HYDROcodone/Acet 5/325 mg TABLET PO PRN (08:17)
[2016-09-22] MEDS: Fluticasone Propionate Nasal 50 MCG/SPRAY BOTTLE NS SCH (08:20)
--- NOTE | 2016-09-22 09:26 | Anesthesia Evaluation PreOp ---
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: Other (Bipolar, Depression/Anxiety, panic disorder, PTSD) Other Medical History: Renal (Acute renal dx) Anesthesia History: No Prior Anesthetic Complications, Past Anesthesia (GB, CHRIS , Orthopedic sx) : No Alcohol Use: none Drug use: none Medications and Allergies FLUoxetine HCl [PROzac] 20 mg PO DAILY 02/21/16 [History] Gabapentin [Neurontin] 800 mg PO BID 09/16/16 [History] Quetiapine Fumarate [Seroquel] 600 mg PO HS 09/16/16 [History] Allergies codeine Allergy (Verified 03/01/16 15:43) Hives NSAIDS (Non-Steroidal Anti-Inflamma Adverse Reaction (Verified 03/01/16 15:43) Gastrointestinal Upset - Meds/Allergy Pre-op Review Medications Reviewed: Yes Allergies Reviewed: Yes Beta Blockers on Current Med List: No Anesthesia Results - Labs 09/22/16 03:33 09/22/16 03:33 Anesthesia Exam O2 Sat Weight 68.2 kg O2 Sat by Pulse Oximetry 91 O2 Sat by Pulse Oximetry 90 O2 Sat by Pulse Oximetry 96 O2 Sat by Pulse Oximetry 92 O2 Sat by Pulse Oximetry 93 O2 Sat by Pulse Oximetry 93 O2 Sat by Pulse Oximetry 94 O2 Sat by Pulse Oximetry 97 O2 Sat by Pulse Oximetry 97 Vital Signs Temp Pulse Resp BP Pulse Ox 98.8 F 92 20 105/67 94 09/16/16 12:12 09/16/16 12:12 09/16/16 12:12 09/16/16 12:12 09/16/16 12:12 Vital Signs/O2 Sat, Most Current Temp Pulse Resp BP Pulse Ox 98.8 F 79 18 148/94 91 09/22/16 07:47 09/22/16 07:47 09/22/16 07:47 09/22/16 07:47 09/22/16 07:47 Height: 5'8'' Weight: 150# NPO (# of Hours): > 8 hrs Pain Scale: 0 Pain Scale Used: Numeric (1 - 10) - HEENT Pupil (Motor): Pupils equal, EOMI Mallampati: II Teeth: Missing, Poor dentition Oral Opening: Greater than 3 - GEOPHYSICAL MANAGER LOC: Oriented GEOPHYSICAL MANAGER Motor: Normal RUE, Normal LUE, Normal RLE, Normal LLE, Normal Face GEOPHYSICAL MANAGER Sensory: Normal: RUE, LUE, RLE, LLE, Face - Cardiac Rhythm: Regular Murmur: None JVD: No Carotid Bruit: No - Pulmonary Breath Sounds: bilateral Clear Respiratory Effort: Symmetrical Anesthesia Assess/Plan ASA Score: 3 Modified [place] Scale for Level of Consciousness: Cooperative, oriented, and tranquil Anesthetic Plan: General Autologous Blood: Yes Monitoring Plan: Standard Monitors
[2016-09-22] MEDS ORDERED: Lidocaine -MPF 2% 2 ML VIAL ONE (09:49)
[2016-09-22] MEDS ORDERED: Ondansetron 4 MG/2 ML VIAL ONE (09:49)
[2016-09-22] MEDS ORDERED: *HR* Midazolam HCl 2 MG/2 ML VIAL ONE (09:49)
[2016-09-22] MEDS ORDERED: Lidocaine -MPF 4% 5 ML AMPUL ONE (09:49)
[2016-09-22] MEDS ORDERED: *HR* Propofol 200 MG/20 ML VIAL IVP ONE (09:49)
[2016-09-22] MEDS ORDERED: *HR* FentaNYL (PF) 100 MCG/2 ML VIAL ONE (09:49)
[2016-09-22] MEDS ORDERED: *HR* Rocuronium Bromide 50 MG/5 ML VIAL ONE (09:52)
[2016-09-22] MEDS: Budesonide/Formoterol 160/4.5 MDI IH SCH ×2 (11:01→23:08)
[2016-09-22] MEDS ORDERED: *HR* Phenylephrine 10 MG/ML VIAL ONE (11:11)
[2016-09-22] MEDS ORDERED: Neostigmine Methylsulfate 3 MG/3 ML SYRINGE ONE (11:14)
[2016-09-22] MEDS ORDERED: Ondansetron 4 MG/2 ML VIAL IVP ONE (11:22)
[2016-09-22 11:27] LABS: IFE Reflexed IFE Done; Immunoglobulin A 204 mg/dL (68-408); Immunoglobulin G 1020 mg/dL (768-1632); Immunoglobulin M 66 mg/dL (35-263)
[2016-09-22] MEDS ORDERED: Ringers Solution, Lactated 1,000 ML IVC SCH (11:30)
--- NOTE | 2016-09-22 11:33 | Operative Note ---
Date of procedure: 09/22/16 Pre-op diagnosis: abscess right hip Post-op diagnosis: same Procedure: incision and drainage 10 x 8 cm multiloculated abscess right hip Complications: none apparent Anesthesia: LASHANDAA Surgeon: Robles Schafer Estimated blood loss (cc): 10 IV fluids (cc): 1,000 Specimen: none Condition: stable Disposition: PACU Procedure in Detail: The patient was brought to the operating room where she was placed supine upon the operating room table. The patient was appropriately identified as to person , procedure, and laterality. The accuracy of this information was confirmed by the procedure team as well as the patient. The patient was then intubated and anesthetized under the supervision of Dr. Miguel Solo. Once the airway was secured, the patient was placed in left lateral decubitus position to maximize exposure of the right hip. The right hip was prepped and draped in usual sterile fashion. Longitudinal incision was then placed over the readily palpable abscess essentially overlying the greater trochanter of the right femur. As the dissection treated into the subcutaneous tissue a large abscess cavity was entered. Approximately 200 mL of pus was evacuated. The abscess cavity measured approximately 10 x 8 cm and was somewhat multiloculated. The pus was evacuated with the suction device and then the entire cavity was irrigated with 3 L sterile saline using a pulsatile irrigation system. Bleeding points along the skin edges were controlled with electrocautery and then the abscess cavity was packed with one-inch iodoform gauze. This was covered by dry sterile gauze. Tape was applied. The patient was taken to PACU in stable condition. Needle, sponge, and instrument counts were correct at the close of the case.
[2016-09-22] MEDS: *HR* HYDROmorphone (PF) 1 MG/ML SYRINGE IVP PRN ×4 (11:46→12:01)
[2016-09-22 11:47] LABS: Myeloperoxidase Ab 3 AU/mL (0-19); Serine Protease-3 Antibody 2 AU/mL (0-19)
[2016-09-22 11:48] LABS: ANA IgG IFA Titer 1:40 (<1:40)
--- NOTE | 2016-09-22 12:07 | Anesthesia Evaluation Post Op ---
Date of Encounter: 09/22/16 Time of Encounter: 12:07 - Vital Signs Vital Signs: Vital Signs/O2 Sat, Most Current Temp Pulse Resp BP Pulse Ox 98.0 F 85 20 109/78 93 09/22/16 11:42 09/22/16 11:52 09/22/16 11:52 09/22/16 11:52 09/22/16 11:52 - Lungs Lungs: Clear Ascult./Percussion - Airway Airway: Non-obstructed - Cardiovascular Regular Rate - Mental Status Mental Status: Alert & Oriented, Answers Appropriately - Pain Pain Scale: 5 Pain Scale used: Numeric (1 - 10) - Nausea Vomiting Nausea Vomiting: Not Present - Hydration Hydration: Ice chips, Has not voided - Discharge PostOp Status: Transfer Patient to floor
[2016-09-22] MEDS ORDERED: Albuterol 2.5 MG/3 ML NEBULIZER IH PRN (12:19)
[2016-09-22] MEDS ORDERED: Ondansetron 4 MG/2 ML VIAL IVP PRN (12:19)
[2016-09-22] MEDS ORDERED: Acetaminophen 325 MG TABLET PO PRN (12:19)
[2016-09-22] MEDS ORDERED: Naloxone 0.4 MG/ML INJ IVP PRN (12:19)
[2016-09-22] MEDS ORDERED: *HR* HYDROcodone/Acet 5/325 mg TABLET PO PRN (12:19)
--- NOTE | 2016-09-22 13:14 | Internal Med Progress Note ---
Date of Encounter: 09/22/16 Time of Encounter: 13:13 - Assessment and plan (1) Abscess of hip, right Current Visit: Yes Status: Acute Assessment and plan: s/p I&D of right hip abscess f/u wound cultures Surgical consultation appreciated will continue empiric IV abx coverage at this time and de-escalate therapy as per culture reports pain control (2) Hypokalemia Current Visit: Yes Status: Acute Assessment and plan: K supplemented continue to monitor electrolytes and replace as needed (3) COPD (chronic obstructive pulmonary disease) Current Visit: Yes Status: Chronic Assessment and plan: Not in acute exacerbation. continue to monitor bronchodilator support as needed Qualifiers: COPD type: unspecified COPD Qualified Code(s): J44.9 - Chronic obstructive pulmonary disease, unspecified (4) Smoker Current Visit: Yes Status: Chronic Assessment and plan: Counselled on tobacco cessation, nicotine patch (5) STEVIE (acute kidney injury) Current Visit: Yes Status: Acute Assessment and plan: Improving STEVIE , pre-renal, possibly underlying CKD given proteinuria Patient may also have evidence of urinary retention, significant post-void volume without hydronephrosis Renal on board, appreciate recs Continue tamsulosin (6) DVT prophylaxis Current Visit: Yes Status: Acute Assessment and plan: IPCD (7) Bipolar disorder Current Visit: Yes Status: Chronic Assessment and plan: Self-mentioned patient not particularly following up with a psychiatrist mood and affect stable. Continue seroquel/prozac Qualifiers: Active/Remission status: remission status unspecified Qualified Code(s): F31.9 - Bipolar disorder, unspecified (8) Anemia Current Visit: Yes Status: Chronic Assessment and plan: CAMILO Continue Iron replacement Qualifiers: Anemia type: iron deficiency Iron deficiency anemia type: unspecified iron deficiency Qualified Code(s): D50.9 - Iron deficiency anemia, unspecified (9) DVT prophylaxis Current Visit: Yes Status: Acute Assessment and plan: IPCD - Subjective Interval history: Patient seen and examined at bedside. She is s/p incision and drainage of right hip abscess. Tolerated procedure well, reports of pain not adequately controlled. No other complains reported at this time. - Constitutional Vitals: Temp Pulse Resp BP Pulse Ox 98.3 F 72 14 102/66 93 09/22/16 12:12 09/22/16 12:12 09/22/16 12:12 09/22/16 12:12 09/22/16 12:12 General appearance: Present: A&O X 3, pleasant, no acute distress, answers questions appropriately - Head Head exam: Present: atraumatic, normocephalic - Eye Eye exam: Present: normal appearance, conjuntiva pink, sclera anicteric - Respiratory Respiratory exam: Present: CTAB. Absent: respiratory distress, wheezes - Cardiovascular Cardiovascular exam: Present: RRR, +S1, +S2 - GI/Abdominal GI/Abdominal exam: Present: normal bowel sounds, soft, no peritoneal signs. Absent: distended, tenderness - Extremities Exam Extremities exam: Present: warm, radial pulses palpable and symetrical. Absent : calf tenderness, cyanotic, pedal edema Additional comments: right hip dressing intact-s/p I&D - Neurological Exam Neurological exam: Present: alert, oriented X3 - Psychiatric Psychiatric exam: Present: normal affect, normal mood Internal Medicine: Result - Labs CBC & Chem 7: 09/22/16 03:33 09/22/16 03:33 Labs: Short CBC 09/22/16 Range/Units 03:33 WBC 7.8 (4.3-11.1) K/mcL Hgb 9.5 L (11.5-15.4) g/dL Hct 29.1 L (35.3-44.9) % Plt Count 243 (140-400) K/mcL Neutrophils # 4.8 (1.6-8.9) K/mcL BMP 09/22/16 03:33 Potassium 3.4 L - Impressions Impressions Extremity Ultrasound 09/21/16 14:30 IMPRESSION: Heterogeneous collection in the subcutaneous tissues over the right hip is compatible with the clinical history of hematoma. It appears slightly increased in size from the prior examination, some of which may be due to differences in image acquisition. D/ / 09/21/2016 15:49:56 Andrea Galvan MD / [facility] Interpreting Provider: Andrea Galvan MD - VTE Documentation of Mechanical Device: Intermittent pneumatic compression device Consult Discharge Plan - Plan Additional Instructions: You have an appointment with Cee Mtz September 24, 2016 at 1:45pm. Please bring social security card, medicaid, family income, and proof of address. Referrals: Trinidad Luan CNP [Advanced Practice Nurse] - 10/02/16 1:00 pm (Please bring Photo ID, insurance card, & any medications you are currently taking. If you are unable to keep this appointment please cancel with in 24 hours of this appointment time. ) Rebecca Mtz CNP [Advanced Practice Nurse] - 12/09/16 8:30 am
[2016-09-22] MEDS: *HR* HYDROcodone/Acet 7.5/325 mg TABLET PO PRN ×2 (14:03→22:10)
[2016-09-22] MEDS ORDERED: *HR* HYDROmorphone (PF) 1 MG/ML SYRINGE IVP ONE (16:55)
[2016-09-22] MEDS ORDERED: *HR* OxyCODONE Immed Rel 5 MG TABLET PO STA (19:42)
[2016-09-23] MEDS: *HR* Morphine 2 MG/ML SYRINGE IVP PRN ×3 (00:53→09:01)
[2016-09-23] MEDS: Vancomycin 1,000 MG in D5% in Water 250 ML IVPB SCH (00:58)
[2016-09-23 01:40] LABS: Basophils % 0.3 %; Eosinophils # 0.5 K/mcL (0.0-0.6); Eosinophils % 6.8 %; Hematocrit 27.7 % (35.3-44.9); Hemoglobin 9.1 g/dL (11.5-15.4); Immature Granulocytes % 1.6 % (0-4); Lymphocytes # 1.9 K/mcL (0.6-4.6); Lymphocytes % 27.7 %; Mean Corpuscular HGB Conc 32.9 g/dL (31.6-35.5); Mean Corpuscular Hemoglobin 30.3 pg (28.0-33.3); Mean Corpuscular Volume 92.3 fL (83.0-100.0); Mean Platelet Volume 10.5 fL (9.4-12.4); Monocytes # 0.6 K/mcL (0.0-1.3); Monocytes % 8.2 %; Neutrophils # 3.9 K/mcL (1.6-8.9); Platelet Count 233 K/mcL (140-400); Red Cell Distribution Width 13.2 % (11.5-14.5); Segmented Neutrophils % 55.4 %
[2016-09-23 01:52] LABS: BUN/Creatinine Ratio 13 (6-26); Blood Urea Nitrogen 13 mg/dL (7-20); Calcium 8.4 mg/dL (8.6-10.8); Carbon Dioxide 24 mEq/L (19-29); Chloride 104 mEq/L (98-109); Glucose 119 mg/dL (70-99); Magnesium 1.3 mg/dL (1.6-2.6); Osmolality,Calculated 285 (280-300); Phosphorous 4.3 mg/dL (2.3-4.7); Potassium 3.9 mEq/L (3.5-4.5); Sodium 137 mEq/L (136-145); eGFR For African Americans > 60 (> 60); eGFR For Non-African Americans 55 (> 60)
[2016-09-23] MEDS: Ipratropium/Albuterol Neb 3 ML IH SCH ×4 (05:32→22:44)
[2016-09-23] MEDS: Ampicillin/Sulbactam 1,500 MG in 0.9 % Sodium Chloride Mini Bag 100 ML IVPB SCH ×3 (05:52→21:03)
[2016-09-23] MEDS: *HR* HYDROcodone/Acet 7.5/325 mg TABLET PO PRN ×2 (05:52→19:55)
[2016-09-23] MEDS ORDERED: Magnesium Sulfate 2 GM in D5% in Water 100 ML IVPB ONE (08:10)
[2016-09-23 08:45] LABS: Cryoglobulin NEG 72HOUR (NEG 72Hour)
[2016-09-23] MEDS: Nicotine 21 MG PATCH.TD24 TD SCH (09:00)
[2016-09-23] MEDS: Gabapentin 400 MG CAPSULE PO SCH (09:01)
[2016-09-23] MEDS: Ascorbic Acid 500 MG TABLET PO SCH (09:01)
[2016-09-23] MEDS: FLUoxetine 20 MG CAPSULE PO SCH (09:02)
[2016-09-23] MEDS: Budesonide/Formoterol 160/4.5 MDI IH SCH ×2 (11:05→22:40)
--- NOTE | 2016-09-23 11:08 | General Surgery Progress Note ---
Date of Encounter: 09/23/16 Time of Encounter: 11:02 Subjective Patient reports: still having pain Narrative: POD#1: patient complaining of pain. Upset by post op changes/reduction in her pain meds Patient is afebrile, 98.4; pulse 72, respirations 16, blood pressure 133/83. Abscess right hip: Notable for copious serous sanguinous drainage but no obvious pus. A portion of the packing (iodophor gauze) was removed. Dry sterile gauze placed as an outer dressing. Laboratories: White count 7.0; hemoglobin 9.1, hematocrit 27.7; electrolytes, B1 , creatinine within normal limits (hypokalemia corrected) Cultures obtained at the time of needle aspiration of the abscess, 09/21/2016 - no growth to date Impression: Postoperative day 1 status post incision and drainage large abscess right hip Cultures so far with no growth Postoperative pain - will adjust meds Objective Vital Signs - Last 8 Hours Temp Pulse Resp BP Pulse Ox 09/23/16 07:01 98.4 F 72 16 133/83 92 Intake and Output 09/22/16 09/23/16 09/23/16 23:59 07:59 15:59 Intake Total 1058 / 1058 370 / 370 360 / 360 Balance 1058 / 1058 370 / 370 360 / 360 Intake: IV Fluids 100 / 100 250 / 250 Unasyn 1,500 mg In 0.9 % 100 / 100 Sodium Chloride (Mini-Bag +) 100 ML @ 200 mls/hr IVPB Q8H PAUL Rx#: [id number] Vancocin 1,000 MG In 250 / 250 Dextrose 5% 250 ML @ 166. 667 mls/hr IVPB Q12H PAUL Rx#:[id number] Oral 958 / 958 120 / 120 360 / 360 Other: Meal Dinner Breakfast Percent of Meal Consumed 100% 50% - Labs 09/23/16 00:37 09/23/16 00:37 Diabetes panel 09/23/16 Range/Units 00:37 Sodium 137 (136-145) mEq/L Potassium 3.9 (3.5-4.5) mEq/L Chloride 104 (98-109) mEq/L Carbon Dioxide 24 (19-29) mEq/L BUN 13 (7-20) mg/dL Creatinine 1.03 (0.57-1.11) mg/dL Glucose 119 H (70-99) mg/dL Calcium 8.4 L (8.6-10.8) mg/dL Calcium panel 09/23/16 09/23/16 Range/Units 00:37 00:37 Calcium 8.4 L (8.6-10.8) mg/dL Phosphorus 4.3 (2.3-4.7) mg/dL Pituitary panel 09/23/16 Range/Units 00:37 Sodium 137 (136-145) mEq/L Potassium 3.9 (3.5-4.5) mEq/L Chloride 104 (98-109) mEq/L Carbon Dioxide 24 (19-29) mEq/L BUN 13 (7-20) mg/dL Creatinine 1.03 (0.57-1.11) mg/dL Glucose 119 H (70-99) mg/dL Calcium 8.4 L (8.6-10.8) mg/dL Adrenal panel 09/23/16 Range/Units 00:37 Sodium 137 (136-145) mEq/L Potassium 3.9 (3.5-4.5) mEq/L Chloride 104 (98-109) mEq/L Carbon Dioxide 24 (19-29) mEq/L BUN 13 (7-20) mg/dL Creatinine 1.03 (0.57-1.11) mg/dL Glucose 119 H (70-99) mg/dL Calcium 8.4 L (8.6-10.8) mg/dL - VTE Documentation of Mechanical Device: Intermittent pneumatic compression device Consult Discharge Plan - Plan Additional Instructions: You have an appointment with Cee Mtz September 24, 2016 at 1:45pm. Please bring social security card, medicaid, family income, and proof of address. Referrals: Trinidad Luna CNP [Advanced Practice Nurse] - 10/02/16 1:00 pm (Please bring Photo ID, insurance card, & any medications you are currently taking. If you are unable to keep this appointment please cancel with in 24 hours of this appointment time. ) Rebecca Mtz CNP [Advanced Practice Nurse] - 12/09/16 8:30 am
[2016-09-23] MEDS: *HR* HYDROcodone/Acet 10/325 mg TABLET PO PRN ×2 (14:57→21:03)
[2016-09-23] MEDS: Vancomycin 750 MG in D5% in Water 250 ML IVPB SCH (15:47)
[2016-09-23] MEDS: Fluticasone Propionate Nasal 50 MCG/SPRAY BOTTLE NS SCH (15:49)
--- NOTE | 2016-09-23 16:08 | Internal Med Progress Note ---
Date of Encounter: 09/23/16 Time of Encounter: 09:55 - Assessment and plan (1) Abscess of hip, right Current Visit: Yes Status: Acute Assessment and plan: s/p I&D of right hip abscess (09/22/16)-POD 1 f/u wound cultures Surgical consultation appreciated will continue empiric IV abx coverage at this time and de-escalate therapy as per culture reports pain control (2) Hypokalemia Current Visit: Yes Status: Acute Assessment and plan: Resolved continue to monitor electrolytes and replace as needed (3) COPD (chronic obstructive pulmonary disease) Current Visit: Yes Status: Chronic Assessment and plan: Not in acute exacerbation. continue to monitor bronchodilator support as needed Qualifiers: COPD type: unspecified COPD Qualified Code(s): J44.9 - Chronic obstructive pulmonary disease, unspecified (4) Smoker Current Visit: Yes Status: Chronic Assessment and plan: Counselled on tobacco cessation, nicotine patch (5) STEVIE (acute kidney injury) Current Visit: Yes Status: Acute Assessment and plan: Resolved STEVIE , pre-renal, possibly underlying CKD given proteinuria Patient may also have evidence of urinary retention, significant post-void volume without hydronephrosis Renal on board, appreciate recs Continue tamsulosin (6) DVT prophylaxis Current Visit: Yes Status: Acute Assessment and plan: IPCD (7) Bipolar disorder Current Visit: Yes Status: Chronic Assessment and plan: Self-mentioned patient not particularly following up with a psychiatrist mood and affect stable. Continue seroquel/prozac Qualifiers: Active/Remission status: remission status unspecified Qualified Code(s): F31.9 - Bipolar disorder, unspecified (8) Anemia Current Visit: Yes Status: Chronic Assessment and plan: CAMILO Continue Iron replacement Qualifiers: Anemia type: iron deficiency Iron deficiency anemia type: unspecified iron deficiency Qualified Code(s): D50.9 - Iron deficiency anemia, unspecified (9) DVT prophylaxis Current Visit: Yes Status: Acute Assessment and plan: IPCD - Subjective Interval history: Patient seen and examined at bedside. She is s/p incision and drainage of right hip abscess-POD 1. As per nursing staff patient continues to demonstrate drug seeking behavior and has history of IV drug abuse in the past. Patient educated about the adverse reactions associated with narcotic abuse, patient become severely agitated when approached about this issue. However she seems to be in no acute painful distress during my evaluation. - Constitutional Vitals: Temp Pulse Resp BP Pulse Ox 98.2 F 81 18 140/77 94 09/23/16 15:53 09/23/16 15:53 09/23/16 15:53 09/23/16 15:53 09/23/16 15:53 General appearance: Present: A&O X 3, pleasant, no acute distress, answers questions appropriately - Head Head exam: Present: atraumatic, normocephalic - Eye Eye exam: Present: normal appearance, conjuntiva pink, sclera anicteric - Respiratory Respiratory exam: Present: CTAB. Absent: accessory muscle use, rales, rhonchi, wheezes - Cardiovascular Cardiovascular exam: Present: RRR, +S1, +S2. Absent: diastolic murmur, gallop, rubs, systolic murmur - GI/Abdominal GI/Abdominal exam: Present: normal bowel sounds, soft, no peritoneal signs. Absent: distended, tenderness - Extremities Exam Extremities exam: Present: warm, radial pulses palpable and symetrical. Absent : pedal edema Additional comments: right hip dressing intact - Neurological Exam Neurological exam: Present: alert, oriented X3 Internal Medicine: Result - Labs CBC & Chem 7: 09/23/16 00:37 09/23/16 00:37 Labs: Short CBC 09/23/16 Range/Units 00:37 WBC 7.0 (4.3-11.1) K/mcL Hgb 9.1 L (11.5-15.4) g/dL Hct 27.7 L (35.3-44.9) % Plt Count 233 (140-400) K/mcL Neutrophils # 3.9 (1.6-8.9) K/mcL BMP 09/23/16 00:37 Sodium 137 Potassium 3.9 Chloride 104 Carbon Dioxide 24 BUN 13 Creatinine 1.03 Glucose 119 H Calcium 8.4 L - VTE Documentation of Mechanical Device: Intermittent pneumatic compression device Consult Discharge Plan - Plan Additional Instructions: You have an appointment with Cee Mtz September 24, 2016 at 1:45pm. Please bring social security card, medicaid, family income, and proof of address. Referrals: Trinidad Luna IT TRAINER [Advanced Practice Nurse] - 10/02/16 1:00 pm (Please bring Photo ID, insurance card, & any medications you are currently taking. If you are unable to keep this appointment please cancel with in 24 hours of this appointment time. ) Rebecca Mtz, JANE [Advanced Practice Nurse] - 12/09/16 8:30 am
[2016-09-24] MEDS: *HR* HYDROcodone/Acet 7.5/325 mg TABLET PO PRN ×2 (00:09→05:31)
[2016-09-24] MEDS: Vancomycin 750 MG in D5% in Water 250 ML IVPB SCH (00:09)
[2016-09-24] MEDS: *HR* HYDROcodone/Acet 10/325 mg TABLET PO PRN ×4 (03:41→23:04)
[2016-09-24] MEDS: Ipratropium/Albuterol Neb 3 ML IH SCH ×4 (03:54→20:57)
[2016-09-24] MEDS: Ampicillin/Sulbactam 1,500 MG in 0.9 % Sodium Chloride Mini Bag 100 ML IVPB SCH (05:31)
[2016-09-24 05:52] LABS: BUN/Creatinine Ratio 14 (6-26); Blood Urea Nitrogen 13 mg/dL (7-20); Carbon Dioxide 27 mEq/L (19-29); Chloride 107 mEq/L (98-109); Glucose 99 mg/dL (70-99); Magnesium 1.6 mg/dL (1.6-2.6); Osmolality,Calculated 294 (280-300); Phosphorous 4.6 mg/dL (2.3-4.7); Sodium 142 mEq/L (136-145); eGFR For African Americans > 60 (> 60); eGFR For Non-African Americans > 60 (> 60)
[2016-09-24 06:02] LABS: Basophils % 0.3 %; Eosinophils # 0.4 K/mcL (0.0-0.6); Hematocrit 27.9 % (35.3-44.9); Hemoglobin 8.9 g/dL (11.5-15.4); Immature Granulocytes % 3.2 % (0-4); Lymphocytes # 1.6 K/mcL (0.6-4.6); Lymphocytes % 26.9 %; Mean Corpuscular HGB Conc 31.9 g/dL (31.6-35.5); Mean Corpuscular Hemoglobin 29.3 pg (28.0-33.3); Mean Corpuscular Volume 91.8 fL (83.0-100.0); Mean Platelet Volume 9.9 fL (9.4-12.4); Monocytes # 0.7 K/mcL (0.0-1.3); Monocytes % 12.3 %; Platelet Count 236 K/mcL (140-400); Red Blood Count 3.04 M/mcL (3.82-4.97); Red Cell Distribution Width 13.2 % (11.5-14.5); Segmented Neutrophils % 50.3 %
[2016-09-24] MEDS: Gabapentin 400 MG CAPSULE PO SCH (09:27)
[2016-09-24] MEDS: Nicotine 21 MG PATCH.TD24 TD SCH (09:28)
[2016-09-24] MEDS: FLUoxetine 20 MG CAPSULE PO SCH (09:28)
[2016-09-24] MEDS: Ascorbic Acid 500 MG TABLET PO SCH (09:28)
[2016-09-24] MEDS: Fluticasone Propionate Nasal 50 MCG/SPRAY BOTTLE NS SCH (09:31)
[2016-09-24] MEDS: Budesonide/Formoterol 160/4.5 MDI IH SCH ×2 (10:49→20:55)
[2016-09-24] MEDS ORDERED: *HR* Morphine 2 MG/ML SYRINGE IV STA (12:22)
--- NOTE | 2016-09-24 12:32 | General Surgery Progress Note ---
Date of Encounter: 09/24/16 Time of Encounter: 12:26 Subjective Patient reports: still having pain Narrative: POD #2: patient c/o pain not relieved by Hydrocodone. Patient admitted to history heroin abuse "a few months ago" Patient agitated and anxious - suspected withdrawal Patient remains afebrile, 97.9; pulse 76, respirations 16, blood pressure is elevated to 149/92 likely related to her pain issues Lungs: Clear Right hip abscess clean, no alveus. Once. Drainage dramatically decreased and is currently serous. The remaining packing is been removed. Laboratories: Operative cultures negative for growth both aerobic and anaerobic White count 6.0; hemoglobin 8.9 with hematocrit 27.9. Electrolytes, BUN/creatinine all within normal limits with BUN/creatinine both normalized. Impression: Abscess right hip demonstrating no growth on the operative cultures. Sterile abscess. History of heroin abuse; with likely withdrawal since her medications have been discontinued postop Recommendations: Consider eligibility for wound VAC as this would simplify wound care. discontinue ATB Change Vicodin to Percocet Provide single dose of morphine Objective Vital Signs - Last 8 Hours Temp Pulse Resp BP Pulse Ox 09/24/16 11:09 97.9 F 76 16 149/92 94 09/24/16 09:36 93 09/24/16 07:46 97.9 F 71 16 129/81 93 09/24/16 04:27 98.3 F 73 16 116/73 94 Intake and Output 09/23/16 09/24/16 09/24/16 23:59 07:59 15:59 Intake Total 824 / 824 350 / 350 120 / 120 Output Total 0 / 0 Balance 824 / 824 350 / 350 120 / 120 Intake: IV Fluids 554 / 554 350 / 350 Unasyn 1,500 mg In 0.9 % 200 / 200 100 / 100 Sodium Chloride (Mini-Bag +) 100 ML @ 200 mls/hr IVPB Q8H PAUL Rx#: [id number] Magnesium Sulfate 2 GM In 104 / 104 Dextrose 5% 100 ML @ 100 mls/hr IVPB ONCE ONE Rx# :[id number] Vancocin 750 MG In 250 / 250 250 / 250 Dextrose 5% 250 ML @ 250 mls/hr IVPB Q12H PAUL Rx#: [id number] Oral 270 / 270 120 / 120 Output: Urine 0 / 0 Other: Meal Dinner Breakfast Percent of Meal Consumed 100% 75% # Voids 1 Weight 59.3 kg Patient Weight 09/24/16 23:59 Weight 59.3 kg - Labs 09/24/16 05:30 09/24/16 05:30 Diabetes panel 09/24/16 Range/Units 05:30 Sodium 142 (136-145) mEq/L Potassium 4.0 (3.5-4.5) mEq/L Chloride 107 (98-109) mEq/L Carbon Dioxide 27 (19-29) mEq/L BUN 13 (7-20) mg/dL Creatinine 0.95 (0.57-1.11) mg/dL Glucose 99 (70-99) mg/dL Calcium 9.0 (8.6-10.8) mg/dL Calcium panel 09/24/16 Range/Units 05:30 Calcium 9.0 (8.6-10.8) mg/dL Phosphorus 4.6 (2.3-4.7) mg/dL Pituitary panel 09/24/16 Range/Units 05:30 Sodium 142 (136-145) mEq/L Potassium 4.0 (3.5-4.5) mEq/L Chloride 107 (98-109) mEq/L Carbon Dioxide 27 (19-29) mEq/L BUN 13 (7-20) mg/dL Creatinine 0.95 (0.57-1.11) mg/dL Glucose 99 (70-99) mg/dL Calcium 9.0 (8.6-10.8) mg/dL Adrenal panel 09/24/16 Range/Units 05:30 Sodium 142 (136-145) mEq/L Potassium 4.0 (3.5-4.5) mEq/L Chloride 107 (98-109) mEq/L Carbon Dioxide 27 (19-29) mEq/L BUN 13 (7-20) mg/dL Creatinine 0.95 (0.57-1.11) mg/dL Glucose 99 (70-99) mg/dL Calcium 9.0 (8.6-10.8) mg/dL - VTE Documentation of Mechanical Device: Intermittent pneumatic compression device Consult Discharge Plan - Plan Additional Instructions: You have an appointment with Cee Mtz September 24, 2016 at 1:45pm. Please bring social security card, medicaid, family income, and proof of address. Referrals: Trinidad Luna, MALARIOLOGIST [Advanced Practice Nurse] - 05/05/17 1:00 pm (Please bring Photo ID, insurance card, & any medications you are currently taking. If you are unable to keep this appointment please cancel with in 24 hours of this appointment time. ) Rebecca Mtz, JANE [Advanced Practice Nurse] - 12/09/16 8:30 am
[2016-09-24] MEDS: *HR* OxyCODONE/APAP 10/325 TABLET PO PRN ×2 (14:25→20:34)
[2016-09-24] MEDS ORDERED: Aminoglycoside Consult 1 EACH MC ONE (14:49)
--- NOTE | 2016-09-24 16:18 | Internal Med Progress Note ---
Date of Encounter: 09/24/16 Time of Encounter: 14:10 - Assessment and plan (1) Abscess of hip, right Current Visit: Yes Status: Acute Assessment and plan: s/p I&D of right hip abscess (09/22/16)-POD 2 f/u wound cultures Surgical consultation appreciated Will discontinue abx awaiting wound vac placement for discharge pain control (2) COPD (chronic obstructive pulmonary disease) Current Visit: Yes Status: Chronic Assessment and plan: Not in acute exacerbation. continue to monitor bronchodilator support as needed Qualifiers: COPD type: unspecified COPD Qualified Code(s): J44.9 - Chronic obstructive pulmonary disease, unspecified (3) Smoker Current Visit: Yes Status: Chronic Assessment and plan: Counselled on tobacco cessation, nicotine patch (4) STEVIE (acute kidney injury) Current Visit: Yes Status: Acute Assessment and plan: Resolved STEVIE , pre-renal, possibly underlying CKD given proteinuria Patient may also have evidence of urinary retention, significant post-void volume without hydronephrosis Renal on board, appreciate recs Continue tamsulosin (5) Bipolar disorder Current Visit: Yes Status: Chronic Assessment and plan: Self-mentioned patient not particularly following up with a psychiatrist mood and affect stable. Continue seroquel/prozac Qualifiers: Active/Remission status: remission status unspecified Qualified Code(s): F31.9 - Bipolar disorder, unspecified (6) Anemia Current Visit: Yes Status: Chronic Assessment and plan: CAMILO Continue Iron replacement Qualifiers: Anemia type: iron deficiency Iron deficiency anemia type: unspecified iron deficiency Qualified Code(s): D50.9 - Iron deficiency anemia, unspecified (7) DVT prophylaxis Current Visit: Yes Status: Acute Assessment and plan: IPCD (8) Hypokalemia Current Visit: Yes Status: Resolved Assessment and plan: Resolved continue to monitor electrolytes and replace as needed - Subjective Interval history: Patient seen and examined at bedside. She is s/p incision and drainage of right hip abscess-POD 2. Pain better controlled with the current pain regimen. No overnight issues reported. - Constitutional Vitals: Temp Pulse Resp BP Pulse Ox 97.8 F 73 16 125/72 97 09/24/16 16:11 09/24/16 16:11 09/24/16 16:11 09/24/16 16:11 09/24/16 16:11 General appearance: Present: A&O X 3, pleasant, no acute distress, answers questions appropriately - Head Head exam: Present: atraumatic, normocephalic - Eye Eye exam: Present: normal appearance, conjuntiva pink, sclera anicteric - Respiratory Respiratory exam: Present: CTAB. Absent: respiratory distress, wheezes - Cardiovascular Cardiovascular exam: Present: RRR, +S1, +S2. Absent: diastolic murmur, gallop, rubs, systolic murmur - GI/Abdominal GI/Abdominal exam: Present: normal bowel sounds, soft, no peritoneal signs. Absent: distended, tenderness - Extremities Exam Extremities exam: Present: warm, radial pulses palpable and symetrical. Absent : calf tenderness, cyanotic, pedal edema Additional comments: right hip dressing intact - Neurological Exam Neurological exam: Present: alert, oriented X3 - Psychiatric Psychiatric exam: Present: normal affect, normal mood Internal Medicine: Result - Labs CBC & Chem 7: 09/24/16 05:30 09/24/16 05:30 Labs: Short CBC 09/24/16 Range/Units 05:30 WBC 6.0 (4.3-11.1) K/mcL Hgb 8.9 L (11.5-15.4) g/dL Hct 27.9 L (35.3-44.9) % Plt Count 236 (140-400) K/mcL Neutrophils # 3.0 (1.6-8.9) K/mcL BMP 09/24/16 05:30 Sodium 142 Potassium 4.0 Chloride 107 Carbon Dioxide 27 BUN 13 Creatinine 0.95 Glucose 99 Calcium 9.0 - VTE Documentation of Mechanical Device: Intermittent pneumatic compression device Consult Discharge Plan - Plan Additional Instructions: You have an appointment with Cee Mtz September 24, 2016 at 1:45pm. Please bring social security card, medicaid, family income, and proof of address. Referrals: Trinidad Luna CNP [Advanced Practice Nurse] - 10/02/16 1:00 pm (Please bring Photo ID, insurance card, & any medications you are currently taking. If you are unable to keep this appointment please cancel with in 24 hours of this appointment time. ) Rebecca Mtz CNP [Advanced Practice Nurse] - 12/09/16 8:30 am
[2016-09-25] MEDS: Ipratropium/Albuterol Neb 3 ML IH SCH ×2 (04:03→10:55)
[2016-09-25] MEDS: *HR* OxyCODONE/APAP 10/325 TABLET PO PRN ×2 (04:28→10:45)
[2016-09-25 06:07] LABS: Basophils % 0.3 %; Eosinophils # 0.5 K/mcL (0.0-0.6); Eosinophils % 7.2 %; Hematocrit 28.1 % (35.3-44.9); Hemoglobin 9.2 g/dL (11.5-15.4); Immature Granulocytes % 2.4 % (0-4); Immature Platelets 3.3 % (1.1-6.1); Lymphocytes # 2.1 K/mcL (0.6-4.6); Lymphocytes % 31.1 %; Mean Corpuscular HGB Conc 32.7 g/dL (31.6-35.5); Mean Corpuscular Hemoglobin 30.1 pg (28.0-33.3); Mean Corpuscular Volume 91.8 fL (83.0-100.0); Mean Platelet Volume 10.6 fL (9.4-12.4); Monocytes # 0.7 K/mcL (0.0-1.3); Monocytes % 9.9 %; Neutrophils # 3.3 K/mcL (1.6-8.9); Platelet Count 276 K/mcL (140-400); Red Blood Count 3.06 M/mcL (3.82-4.97); Red Cell Distribution Width 13.3 % (11.5-14.5); Segmented Neutrophils % 49.1 %
[2016-09-25 06:40] LABS: BUN/Creatinine Ratio 13 (6-26); Blood Urea Nitrogen 13 mg/dL (7-20); Carbon Dioxide 27 mEq/L (19-29); Chloride 106 mEq/L (98-109); Glucose 81 mg/dL (70-99); Magnesium 1.8 mg/dL (1.6-2.6); Osmolality,Calculated 291 (280-300); Phosphorous 4.7 mg/dL (2.3-4.7); Potassium 3.9 mEq/L (3.5-4.5); Sodium 141 mEq/L (136-145); eGFR For African Americans > 60 (> 60); eGFR For Non-African Americans 58 (> 60)
[2016-09-25] MEDS: FLUoxetine 20 MG CAPSULE PO SCH (07:56)
[2016-09-25] MEDS: *HR* HYDROcodone/Acet 10/325 mg TABLET PO PRN (07:57)
[2016-09-25] MEDS: Gabapentin 400 MG CAPSULE PO SCH (07:57)
[2016-09-25] MEDS: Ascorbic Acid 500 MG TABLET PO SCH (07:57)
[2016-09-25] MEDS: Fluticasone Propionate Nasal 50 MCG/SPRAY BOTTLE NS SCH (07:57)
[2016-09-25] MEDS: Nicotine 21 MG PATCH.TD24 TD SCH (07:58)
[2016-09-25] MEDS: Budesonide/Formoterol 160/4.5 MDI IH SCH (10:50)
[2016-09-25 11:41] VITALS: BP 133/83
--- NOTE | 2016-09-25 11:42 | Discharge Summary ---
Date of Encounter: 09/25/16 Time of Encounter: 11:38 - Discharge Diagnosis (1) Abscess of hip, right Priority: Primary Status: Acute (2) COPD (chronic obstructive pulmonary disease) Priority: Secondary Status: Chronic Qualifiers: COPD type: unspecified COPD Qualified Code(s): J44.9 - Chronic obstructive pulmonary disease, unspecified (3) Smoker Priority: Secondary Status: Chronic (4) STEVIE (acute kidney injury) Priority: Secondary Status: Resolved (5) Bipolar disorder Priority: Secondary Status: Chronic Qualifiers: Active/Remission status: remission status unspecified Qualified Code(s): F31.9 - Bipolar disorder, unspecified (6) Anemia Priority: Secondary Status: Chronic Qualifiers: Anemia type: iron deficiency Iron deficiency anemia type: unspecified iron deficiency Qualified Code(s): D50.9 - Iron deficiency anemia, unspecified (7) DVT prophylaxis Priority: Secondary Status: Acute (8) Hypokalemia Priority: Secondary Status: Resolved - Discharge Medications Prescriptions: Albuterol Neb [Proventil Neb] 2.5 mg IH Q4H PRN #3 inhsol PRN Reason: Shortness Of Breath/Wheezing Docusate [Colace] 100 mg PO BID PRN #20 capsule PRN Reason: Constipation OxyCODONE/APAP 10/325 [Percocet 10/325 MG] 1 each PO Q6H PRN #20 tablet PRN Reason: Severe Pain (7-10) Home Medications: FLUoxetine HCl [Prozac] 20 mg PO DAILY 02/21/16 [History] Gabapentin [Neurontin] 800 mg PO BID 09/16/16 [History] Quetiapine Fumarate [Seroquel] 600 mg PO HS 09/16/16 [History] Albuterol Neb [Proventil Neb] 2.5 mg IH Q4H PRN #3 inhsol 09/25/16 [Rx] Docusate [Colace] 100 mg PO BID PRN #20 capsule 09/25/16 [Rx] OxyCODONE/APAP 10/325 [Percocet 10/325 MG] 1 each PO Q6H PRN #20 tablet [Rx] Allergies/Adverse Reactions: Allergies codeine Allergy (Verified 03/01/16 15:43) Hives NSAIDS (Non-Steroidal Anti-Inflamma Adverse Reaction (Verified 03/01/16 15:43) Gastrointestinal Upset Date of admission: 09/17/16 06:20 Primary care physician: PCP NO Consults: 09/17/16 16:59 Consult to Nephrology [CONS] Routine Consulting Provider: Fab Perez Reason for Consult: here for septic hematoma. Hx IVDU- no use since jan allegedly. initial creat 2.7 gfr 18. Cannot find old records- do not know chronicity. Hx hep C as well. Time Notified: 17:18 Call Completed: Yes 09/18/16 08:55 Consult to Surgery [CONS] Stat Consulting Provider: Surgery [facility] S[facility] - [facility] Reason for Consult: Right hip hematoma and abscess Call Completed: Yes 09/23/16 09:21 Consult to Invasive Line Access Team [CONS] Routine Reason for Consult: limited vein access Line Type: EPIV Discharging clinician: Shayla Wheeler Anticipated date of discharge: 09/25/16 - Patient Status Disposition: Home Health Service Condition: Good Functional capacity at discharge: uses cane/walker Overall status at discharge: patient is back to baseline - Discharge Instructions Follow Up With: Trinidad Luna CNP [Advanced Practice Nurse] - 10/02/16 1:00 pm (Please bring Photo ID, insurance card, & any medications you are currently taking. If you are unable to keep this appointment please cancel with in 24 hours of this appointment time. ) Rebecca Mtz CNP [Advanced Practice Nurse] - 12/09/16 8:30 am Additional Instructions: Follow up with primary care physician within one week after your discharge from the hospital. Follow up with surgery within one to two weeks after your discharge from the hospital. continue wound care as recommended by surgery. resume home medications as prescribed by your primary care physician. - Diet and Activity Activity: resume usual activities as tolerated Diet: low salt diet Hospital course: Ms. Lim is a 55 year old female with past medical history of COPD, bipolar disorder, anxiety, IV drug abuse who was admitted for management of pain and right hip secondary to infected right hip abscess. Patient was noted to have acute kidney injury, sepsis all secondary to infected right hip abscess. Patient was started on empiric IV antibiotic therapy and surgery was consulted for incision and drainage of abscess. Patient was followed by surgery and underwent incision and drainage. Patient responded well to treatment and her pain medications were adjusted accordingly. As per surgical instructions, wound care was continued and patient will be discharged to home with wound care instructions and wound VAC. Patient has finished antibiotic course during this hospitalization. At this time patient is hemodynamically stable and will be discharged home with follow-up with primary care physician and surgery. Patient demonstrates understanding of her diagnosis and agrees with the discharge care and plan. - Time Spent with Patient Total time spent providing and/or coordinating discharge services: Greater than 30 minutes - Constitutional Vitals: Temp Pulse Resp BP Pulse Ox 98.0 F 68 14 125/72 94 09/25/16 09:29 09/25/16 09:29 09/25/16 10:53 09/25/16 09:29 09/25/16 10:53 General appearance: Present: A&O X 3, no acute distress, answers questions appropriately - Head Head exam: Present: atraumatic, normocephalic - Eye Eye exam: Present: normal appearance, PERRL, conjuntiva pink, sclera anicteric - Respiratory Respiratory exam: Present: CTAB. Absent: accessory muscle use, rales, rhonchi, wheezes - Cardiovascular Cardiovascular exam: Present: RRR, +S1, +S2. Absent: diastolic murmur, gallop, rubs, systolic murmur - GI/Abdominal GI/Abdominal exam: Present: normal bowel sounds, soft, no peritoneal signs. Absent: distended, tenderness - Extremities Exam Extremities exam: Present: warm, radial pulses palpable and symetrical. Absent : calf tenderness, cyanotic, pedal edema Additional comments: right hip dressing intact - Neurological Exam Neurological exam: Present: alert, oriented X3 - Psychiatric Psychiatric exam: Present: normal affect, normal mood - VTE Documentation of Mechanical Device: Intermittent pneumatic compression device
--- NOTE | 2016-09-25 11:47 | Physician Discharge Referral ---
Home Health/Hosp Referral Info Transfer to: Home Health Provider in Charge Post Discharge: PCP - Diagnosis (1) Abscess of hip, right Priority: Primary Status: Acute (2) COPD (chronic obstructive pulmonary disease) Priority: Secondary Status: Chronic (3) Smoker Priority: Secondary Status: Chronic (4) STEVIE (acute kidney injury) Priority: Secondary Status: Resolved (5) Bipolar disorder Priority: Secondary Status: Chronic (6) Anemia Priority: Secondary Status: Chronic (7) DVT prophylaxis Priority: Secondary Status: Acute (8) Hypokalemia Priority: Secondary Status: Resolved - Respiratory Orders Smoking Cessation: Smoking cessation has been advised. For more information, call the [place] Tobacco Quit Line at 6-585-MIXT-NOW. - Services Needed Following services are medically necessary services: Nursing, Home Health Aide, Physical Therapy, Occupational Therapy Home Care Orders: Wound vac instructions: Wound vac Black sponge Continuous low suction at 125. - Transfer Medications Prescriptions: Albuterol Neb [Proventil Neb] 2.5 mg IH Q4H PRN #3 inhsol PRN Reason: Shortness Of Breath/Wheezing Docusate [Colace] 100 mg PO BID PRN #20 capsule PRN Reason: Constipation OxyCODONE/APAP 10/325 [Percocet 10/325 MG] 1 each PO Q6H PRN #20 tablet PRN Reason: Severe Pain (7-10) Home Medications: FLUoxetine HCl [Prozac] 20 mg PO DAILY 02/21/16 [History] Gabapentin [Neurontin] 800 mg PO BID 09/16/16 [History] Quetiapine Fumarate [Seroquel] 600 mg PO HS 09/16/16 [History] Albuterol Neb [Proventil Neb] 2.5 mg IH Q4H PRN #3 inhsol 09/25/16 [Rx] Docusate [Colace] 100 mg PO BID PRN #20 capsule 09/25/16 [Rx] OxyCODONE/APAP 10/325 [Percocet 10/325 MG] 1 each PO Q6H PRN #20 tablet [Rx] Allergies/Adverse Reactions: Allergies codeine Allergy (Verified 03/01/16 15:43) Hives NSAIDS (Non-Steroidal Anti-Inflamma Adverse Reaction (Verified 03/01/16 15:43) Gastrointestinal Upset Certification: Further, I certify that my clinical findings support that this patient is homebound (i.e. absences from home require considerable and taxing effort and are for medical reasons or adventism services or infrequently or short duration when for other reasons) because: Homebound Reason: Patient requires assistance of a person or device to safely leave home Attestation: My signature below is to certify that this patient is under my care and that I, or nurse practitioner, or a physician's food and beverage assistant working with me, has a face-to -face encounter with this patient.
--- NOTE | 2016-09-25 12:12 | General Surgery Progress Note ---
Date of Encounter: 09/25/16 Time of Encounter: 11:15 Subjective Narrative: General Surgery : patient seen and examined. No complaints - pain better controlled Wound VAC has been applied; dressing intact, wound looks good Afebrile, vital signs stable, pulse 70; respirations 15; blood pressure 133/ 83. Impression: discharge anticipated if discharge, patient to follow up with me 10/02/2016; please call office prior to discharge to make this appointment Objective Vital Signs - Last 8 Hours Temp Pulse Resp BP Pulse Ox 09/25/16 11:31 98.5 F 70 15 133/83 92 09/25/16 10:53 14 94 09/25/16 09:29 98.0 F 68 15 125/72 92 09/25/16 05:29 98.1 F 66 18 119/69 92 Intake and Output 09/24/16 09/25/16 09/25/16 23:59 07:59 15:59 Intake Total 240 / 240 1000 / 1000 50 / 50 Output Total 0 / 0 20 / 20 Balance 240 / 240 980 / 980 50 / 50 Intake: Oral 240 / 240 1000 / 1000 50 / 50 Output: Wound Drainage 0 / 0 20 / 20 Right Hip 0 / 0 20 / 20 Other: Meal Dinner Percent of Meal Consumed 100% # Voids 2 Weight 60.1 kg Patient Weight 09/25/16 23:59 Weight 60.1 kg - Labs 09/25/16 04:30 09/25/16 04:30 Diabetes panel 09/25/16 Range/Units 04:30 Sodium 141 (136-145) mEq/L Potassium 3.9 (3.5-4.5) mEq/L Chloride 106 (98-109) mEq/L Carbon Dioxide 27 (19-29) mEq/L BUN 13 (7-20) mg/dL Creatinine 0.98 (0.57-1.11) mg/dL Glucose 81 (70-99) mg/dL Calcium 9.0 (8.6-10.8) mg/dL Calcium panel 09/25/16 Range/Units 04:30 Calcium 9.0 (8.6-10.8) mg/dL Phosphorus 4.7 (2.3-4.7) mg/dL Pituitary panel 09/25/16 Range/Units 04:30 Sodium 141 (136-145) mEq/L Potassium 3.9 (3.5-4.5) mEq/L Chloride 106 (98-109) mEq/L Carbon Dioxide 27 (19-29) mEq/L BUN 13 (7-20) mg/dL Creatinine 0.98 (0.57-1.11) mg/dL Glucose 81 (70-99) mg/dL Calcium 9.0 (8.6-10.8) mg/dL Adrenal panel 09/25/16 Range/Units 04:30 Sodium 141 (136-145) mEq/L Potassium 3.9 (3.5-4.5) mEq/L Chloride 106 (98-109) mEq/L Carbon Dioxide 27 (19-29) mEq/L BUN 13 (7-20) mg/dL Creatinine 0.98 (0.57-1.11) mg/dL Glucose 81 (70-99) mg/dL Calcium 9.0 (8.6-10.8) mg/dL - VTE Documentation of Mechanical Device: Intermittent pneumatic compression device Consult Discharge Plan - Plan Instructions: Sepsis (DC), Anemia (DC), Negative Pressure Wound Therapy (DC) Additional Instructions: Follow up with primary care physician within one week after your discharge from the hospital. Follow up with surgery within one to two weeks after your discharge from the hospital. continue wound care as recommended by surgery WOUND VAC, MON, WED, FRI. 125 low continuous suction with black sponge. resume home medications as prescribed by your primary care physician. Referrals: Alexsi Sanchez MD [Partnered Physician] - 09/28/16 3:30 pm (WOUND CARE CLINIC FOLLOW UP) Trinidad Luna CNP [Advanced Practice Nurse] - 10/02/16 1:00 pm (Please bring Photo ID, insurance card, & any medications you are currently taking. If you are unable to keep this appointment please cancel with in 24 hours of this appointment time. ) Rebecca Mtz CNP [Advanced Practice Nurse] - 12/09/16 8:30 am Prescriptions: Albuterol Neb [Proventil Neb] 2.5 mg IH Q4H PRN #3 inhsol PRN Reason: Shortness Of Breath/Wheezing Docusate [Colace] 100 mg PO BID PRN #20 capsule PRN Reason: Constipation OxyCODONE/APAP 10/325 [Percocet 10/325 MG] 1 each PO Q6H PRN #20 tablet PRN Reason: Severe Pain (7-10)
== END 2016-09-25 14:08 | disposition home health service (06) | DRG 710 ==
LOC: 3BNU 12:10 → EMEROO 12:10 → 3BNU 18:03 → SUATTDRO 09-17 06:20 → 2ANU 09-18 03:13
PROVIDERS: ADMIT Hospitalist; ATTEND Internal Medicine